=== PATIENT | female | born 1980 | race Caucasian/White ===

== ENCOUNTER 2016-10-06 23:16 | Emergency (ER) | payer SELFPAY ==
[~2016-10-06] VITALS: Ht 157.5 cm; Wt 76.2 kg
[~2016-10-06 23:16] MED LIST: ALPR2TAB2 PO; HYDR-2672 PO; HYDR50TA PO; LEVO750T31 PO; OXYC10TA32 PO; PROM25TA10 PO; QUET200T4 PO; SULF1TAB24 PO; TIZA4CAP PO; TOPI100T39 PO; Topiramate PO
--- NOTE | 2016-10-06 23:48 | PHYS DOC ---
Past Medical History Past Medical History: Asthma, Kidney Stone Additional Past Medical Histor: Back Pain, DDD Past Surgical History: Other Additional Past Surgical Histo: CYSTOSCOPY WITH STENT PLACEMENT, I&D OF ABSCESS TO BACK, left wrist/hardwar Alcohol Use: None Drug Use: None Adult General Chief Complaint Chief Complaint: ABDOMINAL PAIN HPI HPI Patient is a 36 year old female with history of kidney stones and asthma who presents today with generalized abdominal pain mostly on the laceration began 2 weeks ago and has been going on intermittently. She states she started vomiting today. Patient states she's also been feeling bloated, she states she feels her stomach is growing bigger and bigger. She is concerned she could be though her last menstrual cycle was 2 weeks ago. Patient denies any urgency frequency or dysuria. Denies any unusual vaginal discharge of concern for STDs. Review of Systems Review of Systems Constitutional: Denies fever or chills [] Eyes: Denies change in visual acuity, redness, or eye pain [] HENT: Denies nasal congestion or sore throat [] Respiratory: Denies cough or shortness of breath [] Cardiovascular: No additional information not addressed in HPI [] GI: Generalized abdominal pain nausea and vomiting, denies diarrhea : See history of present illness Musculoskeletal: Denies back pain or joint pain [] Integument: Denies rash or skin lesions [] Neurologic: Denies headache, focal weakness or sensory changes [] Endocrine: Denies polyuria or polydipsia [] Current Medications Current Medications Current Medications Medications (Trade) Dose Ordered Sig/Mariel Start Time Stop Time Status Last Admin Dose Admin Famotidine (Pepcid) 20 mg 1X ONCE 10/07/16 00:00 10/07/16 00:01 DC 10/07/16 00:10 20 MG Hydromorphone HCl (Dilaudid) 1 mg 1X ONCE 10/07/16 01:30 10/07/16 01:31 DC 10/07/16 02:31 1 MG Info (Do NOT chart on this entry -- for MONITORING) 1 each PRN DAILY PRN 10/07/16 01:30 10/07/16 04:03 DC Iohexol (Omnipaque 300 Mg/ml) 75 ml 1X ONCE 10/07/16 02:00 10/07/16 02:01 DC 10/07/16 01:44 75 ML Ketorolac Tromethamine (Toradol) 30 mg 1X ONCE 10/07/16 00:00 10/07/16 00:01 DC 10/07/16 00:10 30 MG Ondansetron HCl (Zofran) 4 mg 1X ONCE 10/07/16 00:00 10/07/16 00:01 DC 10/07/16 00:10 4 MG Sodium Chloride (Iv Sodium Chloride 0.9% 1000ml Bag) 1,000 ml @ 1,000 mls/hr 1X ONCE 10/07/16 00:00 10/07/16 00:59 DC 10/07/16 00:10 1,000 MLS/HR Allergies Allergies Allergies Coded Allergies Type Severity Reaction Last Updated Verified fentanyl Allergy Mild Nausea and Vomiting 02/15/16 Yes prednisone Adverse Reaction Intermediate 02/15/16 No morphine Adverse Reaction Mild Nausea and Vomiting 02/15/16 Yes Physical Exam Physical Exam Constitutional: Well developed, well nourished, no acute distress, non-toxic appearance. [] HENT: Normocephalic, atraumatic, bilateral external ears normal, oropharynx moist, no oral exudates, nose normal. [] Eyes: PERRLA, EOMI, conjunctiva normal, no discharge. [] Neck: Normal range of motion, no tenderness, supple, no stridor. [] Cardiovascular:Heart rate regular rhythm, no murmur [] Lungs & Thorax: Bilateral breath sounds clear to auscultation [] Abdomen: Rounded abdomen. Bowel sounds normal, soft, diffuse tenderness throughout the abdomen, negative Ramírez's sign negative psoas and obturator sign , no masses, no pulsatile masses. No guarding or rebound pain or tenderness. Skin: Warm, dry, no erythema, no rash. [] Back: No tenderness, no CVA tenderness. [] Extremities: No tenderness, no cyanosis, no clubbing, ROM intact, no edema. [] Neurologic: Alert and oriented X 3, normal motor function, normal sensory function, no focal deficits noted. [] Psychologic: Affect normal, judgement normal, mood normal. [] Current Patient Data Vital Signs Vital Signs Date Time Temp Pulse Resp B/P Pulse Ox O2 Delivery O2 Flow Rate FiO2 10/07/16 03:31 78 20 127/84 97 Room Air 10/06/16 23:29 97.8 97.8 Lab Values Laboratory Tests Test 10/06/16 23:25 10/06/16 23:35 10/07/16 00:40 Urine Collection Type Unknown Urine Color Yellow Urine Clarity Clear Urine pH 6.5 Urine Specific [place] 1.020 Urine Protein Negativemg/dL (NEG-TRACE) Urine Glucose (UA) Negativemg/dL (NEG) Urine Ketones (Stick) Negativemg/dL (NEG) Urine Blood Small (NEG) Urine Nitrite Negative (NEG) Urine Bilirubin Negative (NEG) Urine Urobilinogen Dipstick 0.2mg/dL (0.2 mg/dL) Urine Leukocyte Esterase Negative (NEG) Urine RBC Occ/HPF (0-2) Urine WBC 5-10/HPF (0-4) Urine Squamous Epithelial Cells Many/LPF Urine Bacteria Few/HPF (0-FEW) Urine Mucus Mod/LPF White Blood Count 11.6x10^3/uL (4.0-11.0) H Red Blood Count 4.90x10^6/uL (3.50-5.40) Hemoglobin 15.0g/dL (12.0-15.5) Hematocrit 45.8% (36.0-47.0) Mean Corpuscular Volume 94fL (79-100) Mean Corpuscular Hemoglobin 31pg (25-35) Mean Corpuscular Hemoglobin Concent 33g/dL (31-37) Red Cell Distribution Width 13.9% (11.5-14.5) Platelet Count 296x10^3/uL (140-400) Neutrophils (%) (Auto) 63% (31-73) Lymphocytes (%) (Auto) 27% (24-48) Monocytes (%) (Auto) 8% (0-9) Eosinophils (%) (Auto) 2% (0-3) Basophils (%) (Auto) 1% (0-3) Neutrophils # (Auto) 7.3x10^3uL (1.8-7.7) Lymphocytes # (Auto) 3.2x10^3/uL (1.0-4.8) Monocytes # (Auto) 0.9x10^3/uL (0.0-1.1) Eosinophils # (Auto) 0.2x10^3/uL (0.0-0.7) Basophils # (Auto) 0.1x10^3/uL (0.0-0.2) Sodium Level 138mmol/L (136-145) Potassium Level 3.6mmol/L (3.5-5.1) Chloride Level 102mmol/L (98-107) Carbon Dioxide Level 27mmol/L (21-32) Anion Gap 9 (6-14) Blood Urea Nitrogen 13mg/dL (7-20) Creatinine 0.8mg/dL (0.6-1.0) Estimated GFR (Cockcroft-Gault) 80.7 BUN/Creatinine Ratio 16 (6-20) Glucose Level 120mg/dL (70-99) H Calcium Level 9.6mg/dL (8.5-10.1) Total Bilirubin 0.3mg/dL (0.2-1.0) Aspartate Amino Transferase (AST) 19U/L (15-37) Alanine Aminotransferase (ALT) 21U/L (14-59) Alkaline Phosphatase 88U/L (46-116) Total Protein 7.7g/dL (6.4-8.2) Albumin 3.8g/dL (3.4-5.0) Albumin/Globulin Ratio 1.0 (1.0-1.7) Lipase 127U/L (73-393) Influenza Type A Antigen Negative (NEGATIVE) Influenza Type B Antigen Negative (NEGATIVE) Laboratory Tests 10/06/16 23:35 Laboratory Tests 10/06/16 23:35 EKG EKG [] Radiology/Procedures Radiology/Procedures [] [facility] [address] [place] [address] IMAGING REPORT Signed PATIENT: NAI SEALS ACCOUNT: [id number] : 1980 LOCATION: ER AGE: 36 SEX: F EXAM STATUS: REG ER ORD. PHYSICIAN: ELYSIA MUÑOZ APRN REASON: abdominal pain PROCEDURE: ABD PELV W/ IV CONTRAST ONLY PROCEDURE CT abdomen pelvis with contrast. HISTORY Abdominal pain, nausea, vomiting. TECHNIQUE Helical CT imaging of the abdomen and pelvis is performed after 75 cc Omnipaque 300 IV contrast. PQRS: One or more the following individualized dose reduction techniques were utilized for the study: 1. Automated exposure control. 2. Adjustment of the mA and/or kV according to patient size. 3. Use of iterative reconstruction technique. COMPARISON CT abdomen pelvis without contrast February 15, 2016. FINDINGS Mild bilateral dependent atelectasis. Cardiac size normal. The liver, gallbladder, spleen, pancreas, adrenal glands, abdominal aorta, and kidneys are normal. Parenchymal calcification of left kidney, stable. Stomach unremarkable. No dilated small bowel. No evidence of colitis. There is moderate stool in the colon. No secondary signs of appendicitis. No abdominal adenopathy or free fluid. Tubal ligation clips. 1.3 centimeter peripherally enhancing right ovary functional cyst. Uterus unremarkable. No pelvic free fluid. Urinary bladder is normal. No acute bone abnormality. Probable Schmorl's node with sclerosis at the inferior endplate of T10. IMPRESSION 1. No acute abdominal or pelvic abnormality. 2. Small peripherally enhancing right ovary functional cyst. No pelvic free fluid. Electronically signed by: Farhan Prescott MD (Oct 07, 2016 02:00:50) DICTATED and SIGNED BY: FARHAN PRESCOTT MD DATE: 10/07/16 020 CC: ELYSIA MUÑOZ MUSICAL INSTRUMENT MECHANIC; PHU GONZALES APRN ~ Course & Med Decision Making Course & Med Decision Making Pertinent Labs and Imaging studies reviewed. (See chart for details) Patient is in the ED generalized abdominal pain for 2 weeks. She is also complaining of vomiting today. She believes she is though her last menstrual cycle was 2 weeks ago. Acute abdominal series interpreted by Dr. Kasper was noted for nonspecific gas pattern in the abdomen as well as stool. CT of the abdomen and pelvic was ordered. Negative urine hCG. CBC 11.5, CMP with no acute findings. [address] Kasper. I seemed care of this patient as stated by liban or Elysia. CT of the abdomen and pelvis did not reveal any acutely concerning findings, and a isolated small left ovarian cyst was noted. A findings were also unremarkable. On reevaluation, patient is resting comfortable, is feeling better at this time. I did discuss findings with patient and significant other at bedside. Encouraged the patient to follow-up with her primary care provider for additional evaluation, she did receive a copy of her CT findings, we did discuss concerning symptoms that would prompt return to the ED. Patient was also written for prescription for Zofran and Bentyl, given instructions and precautions, patient voiced understanding and agreement with plan as stated, discharged home in stable condition with family the plan as above. Dragon Disclaimer Dragon Disclaimer This electronic medical record was generated, in whole or in part, using a voice recognition dictation system. Departure Impression: Primary Impression: Generalized abdominal pain Disposition: HOME, SELF-CARE Condition: IMPROVED Referrals: PHU GONZALES APRN (PCP) Scripts Ondansetron Hcl (Zofran)4 Mg Tablet4 Mg PO BID PRN NAUSEA/VOMITING #12 TAB Prov:PHOEBE KASPER DO 10/07/16 Dicyclomine Hcl (Bentyl)10 Mg [id number] Mg PO QID PRN PAIN #12 TAB Prov:PHOEBE KASPER DO 10/07/16 Departure Departure Impression: Primary Impression: Generalized abdominal pain Disposition: HOME, SELF-CARE Condition: IMPROVED Referrals: PHU GONZALES APRN (PCP) Scripts Ondansetron Hcl (Zofran)4 Mg Tablet4 Mg PO BID PRN NAUSEA/VOMITING #12 TAB Prov:PHOEBE KASPER DO 10/07/16 Dicyclomine Hcl (Bentyl)10 Mg [id number] Mg PO QID PRN PAIN #12 TAB Prov:PHOEBE KASPER DO 10/07/16 ELYSIA MUÑOZ APRN Oct 06, 2016 23:48 PHOEBE KASPER DO Oct 07, 2016 06:18
[2016-10-06 23:50] LABS: BASO # 0.1 x10^3/uL (0.0-0.2); BASO % 1 % (0-3); EOS % 2 % (0-3); HEMATOCRIT 45.8 % (36.0-47.0); LYMPH # 3.2 x10^3/uL (1.0-4.8); LYMPH % 27 % (24-48); MEAN CORPUSCULAR HEMOGLOBIN 31 pg (25-35); MEAN CORPUSCULAR HGB CONC 33 g/dL (31-37); MEAN CORPUSCULAR VOLUME 94 fL (79-100); MONO % 8 % (0-9); NEUT % 63 % (31-73); PLATELET COUNT 296 x10^3/uL (140-400); RED CELL DISTRIBUTION WIDTH 13.9 % (11.5-14.5); WHITE BLOOD COUNT 11.6 x10^3/uL (4.0-11.0)
[2016-10-07] MEDS ORDERED: KETOROLAC TROMETHAMINE 30 MG/ML SYRINGE. IV ONE
[2016-10-07] MEDS ORDERED: IV NORMAL SALINE 1000ML BAG 1,000 ML IV ONE
[2016-10-07] MEDS ORDERED: FAMOTIDINE 20 MG/2 ML VIAL IVP ONE
[2016-10-07] MEDS ORDERED: ONDANSETRON PF 4 MG/2 ML VIAL. IV ONE
[2016-10-07 00:03] LABS: CALCIUM 9.6 mg/dL (8.5-10.1); CREATININE 0.8 mg/dL (0.6-1.0); GFR 80.7; POTASSIUM 3.6 mmol/L (3.5-5.1)
[2016-10-07 00:08] LABS: ALBUMIN 3.8 g/dL (3.4-5.0); TOTAL BILIRUBIN 0.3 mg/dL (0.2-1.0); TOTAL PROTEIN 7.7 g/dL (6.4-8.2)
[2016-10-07 00:20] LABS: BILIRUBIN,URINE NEGATIVE (NEG); GLUCOSE,URINE NEGATIVE (NEG); NITRITE,URINE NEGATIVE (NEG); PH,URINE 6.5; PROTEIN,URINE NEGATIVE (NEG-TRACE); UROBILINOGEN,URINE 0.2 mg/dL (0.2 mg/dL)
[2016-10-07 00:21] LABS: BACTERIA,URINE FEW /HPF (0-FEW); RBC,URINE OCC /HPF (0-2); SQUAMOUS EPITHELIAL CELL,UR MANY /LPF
[2016-10-07] MEDS ORDERED: HYDROMORPHONE 2 MG/ML VIAL. IV ONE (01:30)
[2016-10-07] MEDS ORDERED: CONTRAST GIVEN MC PRN (01:30)
[2016-10-07 01:34] LABS: OBC FLU VALID
[2016-10-07] MEDS ORDERED: IOHEXOL 300 MG/ML 75 ML VIAL IV ONE (02:00)
--- NOTE | 2016-10-07 02:02 | RAD ---
PROCEDURE CT abdomen pelvis with contrast. HISTORY Abdominal pain, nausea, vomiting. TECHNIQUE Helical CT imaging of the abdomen and pelvis is performed after 75 cc Omnipaque 300 IV contrast. PQRS: One or more the following individualized dose reduction techniques were utilized for the study: 1. Automated exposure control. 2. Adjustment of the mA and/or kV according to patient size. 3. Use of iterative reconstruction technique. COMPARISON CT abdomen pelvis without contrast February 15, 2016. FINDINGS Mild bilateral dependent atelectasis. Cardiac size normal. The liver, gallbladder, spleen, pancreas, adrenal glands, abdominal aorta, and kidneys are normal. Parenchymal calcification of left kidney, stable. Stomach unremarkable. No dilated small bowel. No evidence of colitis. There is moderate stool in the colon. No secondary signs of appendicitis. No abdominal adenopathy or free fluid. Tubal ligation clips. 1.3 centimeter peripherally enhancing right ovary functional cyst. Uterus unremarkable. No pelvic free fluid. Urinary bladder is normal. No acute bone abnormality. Probable Schmorl's node with sclerosis at the inferior endplate of T10. IMPRESSION 1. No acute abdominal or pelvic abnormality. 2. Small peripherally enhancing right ovary functional cyst. No pelvic free fluid. Electronically signed by: Farhan Prescott MD (Oct 07, 2016 02:00:50)
[2016-10-07] MEDS ORDERED: ONDA4TAB7 PO (03:07)
[2016-10-07] MEDS ORDERED: DICY10CA53 PO (03:07)
[2016-10-07 03:31] VITALS: BP 127/84
--- NOTE | 2016-10-07 07:35 | RAD ---
Portable acute abdomen series, 3 views, 10/07/2016: History: Abdominal pain There is a moderate amount of gas and stool in the colon in a nonspecific pattern. No free air seen in the abdomen. There is no evidence of organomegaly. Several pelvic calcifications are probably phleboliths. The heart size is normal. The lungs are clear. There is no evidence of pleural fluid. IMPRESSION: No acute abdominal abnormality is detected.
== END 2016-10-07 03:55 | disposition home or self-care (01) ==
LOC: ER 23:16
DX: R10.84 Generalized abdominal pain (principal); J45.909 Unspecified asthma, uncomplicated; Z87.442 Personal history of urinary calculi; Z88.8 Allergy status to other drugs, medicaments and biological substances; Z88.5 Allergy status to narcotic agent
CPT/HCPCS: 36415; 74022; 74177; 80053; 81001; 81025; 83690; 85027; 87804; 96361; 96374; 96375; 99285; J1170; J1885; J2405; J7030; Q9967; S0028

== ENCOUNTER 2016-10-29 20:19 | Emergency (ER) | payer SELFPAY ==
[~2016-10-29] VITALS: Ht 157.5 cm; Wt 65.8 kg
[~2016-10-29 20:19] MED LIST changes: +DICY10CA53 PO; +ONDA4TAB7 PO
[2016-10-29 21:00] LABS: BILIRUBIN,URINE NEGATIVE (NEG); GLUCOSE,URINE NEGATIVE (NEG); NITRITE,URINE NEGATIVE (NEG); PH,URINE 6.5; PROTEIN,URINE NEGATIVE (NEG-TRACE)
[2016-10-29] MEDS ORDERED: HYDROMORPHONE 2 MG/ML VIAL. IM ONE (21:00)
[2016-10-29] MEDS ORDERED: ONDANSETRON PF 4 MG/2 ML VIAL. IV ONE ×3 (21:00→22:30)
[2016-10-29 21:09] LABS: BACTERIA,URINE 0 /HPF (0-FEW); RBC,URINE OCC /HPF (0-2); SQUAMOUS EPITHELIAL CELL,UR FEW /LPF; WBC,URINE OCC /HPF (0-4)
[2016-10-29] MEDS ORDERED: HYDROMORPHONE 2 MG/ML VIAL. IV PRN (21:30)
[2016-10-29] MEDS ORDERED: HYDROMORPHONE 2 MG/ML VIAL. IV ONE (21:30)
[2016-10-29] MEDS ORDERED: IV NORMAL SALINE 1000ML BAG 1,000 ML IV ONE (21:30)
[2016-10-29 21:45] LABS: BASO # 0.1 x10^3/uL (0.0-0.2); BASO % 1 % (0-3); EOS % 2 % (0-3); HEMATOCRIT 40.5 % (36.0-47.0); HEMOGLOBIN 13.5 g/dL (12.0-15.5); LYMPH # 5.3 x10^3/uL (1.0-4.8); LYMPH % 43 % (24-48); MEAN CORPUSCULAR HEMOGLOBIN 31 pg (25-35); MEAN CORPUSCULAR HGB CONC 33 g/dL (31-37); MEAN CORPUSCULAR VOLUME 92 fL (79-100); MONO % 8 % (0-9); NEUT % 47 % (31-73); PLATELET COUNT 274 x10^3/uL (140-400); RED BLOOD COUNT 4.41 x10^6/uL (3.50-5.40); RED CELL DISTRIBUTION WIDTH 14.1 % (11.5-14.5); WHITE BLOOD COUNT 12.4 x10^3/uL (4.0-11.0)
[2016-10-29] MEDS ORDERED: ONDA4TAB10 SL (21:59)
[2016-10-29] MEDS ORDERED: HYDR-2666 PO (21:59)
--- NOTE | 2016-10-29 22:00 | PHYS DOC ---
Past Medical History Past Medical History: Anxiety, Asthma, Depression, Kidney Stone Additional Past Medical Histor: Back Pain, DDD, INSOMNIA, PTSD, MULTIPLE PERSONALITY DISORDER Past Surgical History: Other Additional Past Surgical Histo: CYSTOSCOPY WITH STENT PLACEMENT, I&D OF ABSCESS TO BACK, L WRIST FX Alcohol Use: None Drug Use: None Adult General Chief Complaint Chief Complaint: ABDOMINAL PAIN HPI HPI 36-year-old female presenting to the emergency department today with left lower quadrant abdominal pain. The pain is sharp moderate. She has associated vaginal bleeding but denies being . She is also had some nausea vomiting. Her pain is nonradiating. She denies polyuria or dysuria. She denies foul-smelling vaginal discharge. She denies exposure to STIs or STDs. Review of systems is negative for chest pain shortness of breath fevers or chills. All other review of systems is negative unless otherwise noted in history of present illness. Review of Systems Review of Systems SEE ABOVE. Current Medications Current Medications Current Medications Medications (Trade) Dose Ordered Sig/Mariel Start Time Stop Time Status Last Admin Dose Admin Hydromorphone HCl (Dilaudid) 0.5 mg 1X ONCE 10/29/16 21:30 10/29/16 21:31 DC 10/29/16 21:33 0.5 MG Ondansetron HCl (Zofran) 4 mg 1X ONCE 10/29/16 22:30 10/29/16 22:31 DC 10/29/16 22:24 4 MG Ondansetron HCl 4 mg 4 mg 1X ONCE 10/29/16 21:30 10/29/16 21:31 DC 10/29/16 21:32 4 MG Sodium Chloride (Iv Sodium Chloride 0.9% 1000ml Bag) 1,000 ml @ 1,000 mls/hr 1X ONCE 10/29/16 21:30 10/29/16 22:29 DC 10/29/16 21:32 1,000 MLS/HR Allergies Allergies Allergies Coded Allergies Type Severity Reaction Last Updated Verified fentanyl Allergy Mild Nausea and Vomiting 02/15/16 Yes prednisone Adverse Reaction Intermediate 02/15/16 No morphine Adverse Reaction Mild Nausea and Vomiting 02/15/16 Yes Physical Exam Physical Exam Constitutional: Well developed, well nourished, no acute distress, non-toxic appearance. HENT: Normocephalic, atraumatic, bilateral external ears normal, oropharynx moist, no oral exudates, nose normal. Eyes: PERRLA, EOMI, conjunctiva normal, no discharge. Neck: Normal range of motion, no tenderness, supple, no stridor. [] Cardiovascular:Heart rate regular rhythm, no murmur Lungs & Thorax: Bilateral breath sounds clear to auscultation [] Abdomen: Soft nontender abdomen without rebound tenderness or guarding present. Negative McBurneys point. Negative Ramírez sign. No ecchymosis present. Skin: Warm, dry, no erythema, no rash. Back: No tenderness, no CVA tenderness. Extremities: No tenderness, no cyanosis, no clubbing, ROM intact, no edema. Neurologic: Alert and oriented X 3, normal motor function, normal sensory function, no focal deficits noted. [] Psychologic: Affect normal, judgement normal, mood normal. Current Patient Data Vital Signs Vital Signs Date Time Temp Pulse Resp B/P Pulse Ox O2 Delivery O2 Flow Rate FiO2 10/29/16 22:57 70 20 146/91 93 Room Air 10/29/16 20:30 97.5 97.5 Lab Values Laboratory Tests Test 10/29/16 20:26 10/29/16 20:47 10/29/16 21:25 Urine Collection Type Unknown Urine Color Yellow Urine Clarity Clear Urine pH 6.5 Urine Specific [place] 1.025 Urine Protein Negativemg/dL (NEG-TRACE) Urine Glucose (UA) Negativemg/dL (NEG) Urine Ketones (Stick) Negativemg/dL (NEG) Urine Blood Trace (NEG) Urine Nitrite Negative (NEG) Urine Bilirubin Negative (NEG) Urine Urobilinogen Dipstick 1.0mg/dL (0.2 mg/dL) Urine Leukocyte Esterase Negative (NEG) Urine RBC Occ/HPF (0-2) Urine WBC Occ/HPF (0-4) Urine Squamous Epithelial Cells Few/LPF Urine Bacteria 0/HPF (0-FEW) Urine Mucus Mod/LPF POC Urine HCG, Qualitative Hcg negative (Negative) White Blood Count 12.4x10^3/uL (4.0-11.0) H Red Blood Count 4.41x10^6/uL (3.50-5.40) Hemoglobin 13.5g/dL (12.0-15.5) Hematocrit 40.5% (36.0-47.0) Mean Corpuscular Volume 92fL (79-100) Mean Corpuscular Hemoglobin 31pg (25-35) Mean Corpuscular Hemoglobin Concent 33g/dL (31-37) Red Cell Distribution Width 14.1% (11.5-14.5) Platelet Count 274x10^3/uL (140-400) Neutrophils (%) (Auto) 47% (31-73) Lymphocytes (%) (Auto) 43% (24-48) Monocytes (%) (Auto) 8% (0-9) Eosinophils (%) (Auto) 2% (0-3) Basophils (%) (Auto) 1% (0-3) Neutrophils # (Auto) 5.8x10^3uL (1.8-7.7) Lymphocytes # (Auto) 5.3x10^3/uL (1.0-4.8) H Monocytes # (Auto) 1.0x10^3/uL (0.0-1.1) Eosinophils # (Auto) 0.2x10^3/uL (0.0-0.7) Basophils # (Auto) 0.1x10^3/uL (0.0-0.2) Sodium Level 142mmol/L (136-145) Potassium Level 3.4mmol/L (3.5-5.1) L Chloride Level 105mmol/L (98-107) Carbon Dioxide Level 25mmol/L (21-32) Anion Gap 12 (6-14) Blood Urea Nitrogen 13mg/dL (7-20) Creatinine 0.8mg/dL (0.6-1.0) Estimated GFR (Cockcroft-Gault) 80.7 BUN/Creatinine Ratio 16 (6-20) Glucose Level 99mg/dL (70-99) Calcium Level 9.2mg/dL (8.5-10.1) Total Bilirubin 0.2mg/dL (0.2-1.0) Aspartate Amino Transferase (AST) 16U/L (15-37) Alanine Aminotransferase (ALT) 26U/L (14-59) Alkaline Phosphatase 75U/L (46-116) Total Protein 6.7g/dL (6.4-8.2) Albumin 3.4g/dL (3.4-5.0) Albumin/Globulin Ratio 1.0 (1.0-1.7) Lipase 147U/L (73-393) Laboratory Tests 10/29/16 21:25 Laboratory Tests 10/29/16 21:25 EKG EKG [] Radiology/Procedures Radiology/Procedures [] Course & Med Decision Making Course & Med Decision Making Pertinent Labs and Imaging studies reviewed. (See chart for details) [] 36-year-old female presenting to the emergency department with vaginal bleeding with left lower quadrant abdominal pain. Afebrile normal heart rate. Pertinent physical exam findings show a nontender abdomen. The patient is given IV fluids along with pain medication here in the emergency department. Ultrasound obtained along with blood work. CBC shows mild leukocytosis that is nonspecific. Urinalysis negative for infection. test negative. US neg for acute pathology. Patient. The patient's abdomen is soft and nontender. She was subsequently discharged home to follow up with her primary care physician in 2-3 days For further outpatient evaluation workup and care. Dragon Disclaimer Dragon Disclaimer This electronic medical record was generated, in whole or in part, using a voice recognition dictation system. Departure Departure Impression: Primary Impression: Abdominal pain, LLQ Additional Impression: Vaginal bleeding Disposition: 01 HOME, SELF-CARE Condition: STABLE Referrals: PHU GONZALES APRN (PCP) Patient Instructions: Abdominal Pain, Women Additional Instructions: Thank you for allowing us to participate in your care today. Followup with your primary care physician in 3 days if your symptoms do not improve. If you do not have a primary care provider you can ask for a list of our primary care providers. Return to the emergency department you have any new or concerning findings. This should be evaluated by the primary care physician and any necessary consulting services for continued management within a few days after discharge. Return to emergency room if you have any new or concerning symptoms including but not limited to fever, chills, nausea, vomiting, intractable pain, any new rashes, chest pain, shortness of air, uncontrolled bleeding, difficulty breathing, and/or vision loss. Scripts Ondansetron (Zofran Odt)4 Mg Tab.rapdis1 Tab SL PRN Q8HRS PRN NAUSEA #6 TAB Prov:JANAY FAYE MD 10/29/16 Hydrocodone Bit/Acetaminophen (Hydrocodone-Apap 5-325 )1 Each Tablet1 Tab PO PRN Q6HRS PRN PAIN #15 TAB Be careful as this medication may cause you to be drowsy or tired. Do not drive on this medication. Prov:JANAY FAYE MD 10/29/16 Problem Qualifiers JANAY FAYE MD Oct 29, 2016 22:00
--- NOTE | 2016-10-29 22:03 | RAD ---
PROCEDURE Pelvic ultrasound HISTORY 36-year-old female with left lower quadrant pain for 3 hours, irregular cycles. TECHNIQUE Transverse and longitudinal sonography of the pelvis is performed utilizing transabdominal and transvaginal transducers. COMPARISON None FINDINGS Transabdominal imaging does not demonstrate adequate visualization of the uterus nor bilateral ovaries. Transvaginal imaging demonstrates an anteflexed uterus measuring 7.5 x 3.7 x 4.8 cm. Endometrial thickness demonstrated at 4 millimeter. The left ovary is visualized measuring 2.5 x 1.8 x 1.5 cm, with internal blood flow documented. The right ovary is visualized measuring 2.3 x 1.2 x 1.3 cm, with internal blood flow documented. No ovarian or adnexal mass is seen. No free fluid is seen within the provided images. IMPRESSION Normal pelvic ultrasound. Electronically signed by: Tata Weir (Oct 29, 2016 22:02:20)
[2016-10-29 22:27] LABS: CALCIUM 9.2 mg/dL (8.5-10.1); CREATININE 0.8 mg/dL (0.6-1.0); GFR 80.7; POTASSIUM 3.4 mmol/L (3.5-5.1)
[2016-10-29 22:35] LABS: ALBUMIN 3.4 g/dL (3.4-5.0); TOTAL BILIRUBIN 0.2 mg/dL (0.2-1.0); TOTAL PROTEIN 6.7 g/dL (6.4-8.2)
[2016-10-29 22:57] VITALS: BP 146/91
== END 2016-10-29 23:14 | disposition home or self-care (01) ==
LOC: ER 20:19
DX: R10.32 Left lower quadrant pain (principal); N93.9 Abnormal uterine and vaginal bleeding, unspecified; J45.909 Unspecified asthma, uncomplicated; G47.00 Insomnia, unspecified; Z88.5 Allergy status to narcotic agent; Z88.8 Allergy status to other drugs, medicaments and biological substances
CPT/HCPCS: 36415; 76830; 76856; 80053; 81001; 81025; 83690; 85027; 96361; 96374; 96375; 96376; 99285; J1170; J2405; J7030

== ENCOUNTER 2016-12-16 17:29 | Observation (INO) | payer SELFPAY ==
[~2016-12-16] VITALS: Ht 157.5 cm; Wt 80.3 kg
[~2016-12-16 17:29] MED LIST changes: +HYDR-2666 PO; +ONDA4TAB10 SL
[2016-12-16] MEDS ORDERED: MORPHINE SULFATE 4 MG/ML DISP.SYRIN. IV ONE (17:45)
[2016-12-16] MEDS ORDERED: ONDANSETRON PF 4 MG/2 ML VIAL. IV ONE ×2 (17:45→19:30)
[2016-12-16] MEDS ORDERED: PROPOFOL 20 ML IV ONE (18:57)
[2016-12-16] MEDS ORDERED: PROPOFOL 10 MG/ML (50ML) VIAL. IV PRN (19:00)
[2016-12-16] MEDS ORDERED: KETOROLAC TROMETHAMINE 30 MG/ML INJ. IV ONE (19:30)
--- NOTE | 2016-12-16 20:34 | RAD ---
Examination: Two views of the right wrist. HISTORY History of postreduction. COMPARISON None available Findings: Dorsal and lateral displaced fracture of the distal radius metadiaphysis is identified. There is minimal displaced fracture of the ulnar-styloid. Cast obscures fine bony detail. Impression. Dorsal and lateral displaced fracture of the distal radius metadiaphysis. Minimal displaced fracture of the ulnar styloid. Comparison to prior exam is recommended if available. Electronically signed by: Ayo Trammell (Dec 16, 2016 20:32:37)
--- NOTE | 2016-12-16 20:35 | ED.ADGEN ---
Past Medical History Past Medical History: Anxiety, Asthma, Depression, Kidney Stone, Other Additional Past Medical Histor: Back Pain, DDD, INSOMNIA, PTSD, MULTIPLE PERSONALITY DISORDER Past Surgical History: Tubal ligation, Other Additional Past Surgical Histo: CYSTOSCOPY WITH STENT PLACEMENT, I&D OF ABSCESS TO BACK, L WRIST FX Additional Information: 0.5 PPD Alcohol Use: None Drug Use: None Adult General Chief Complaint Chief Complaint: WRIST PAIN HPI HPI Patient is a 36 year old female who presents with right wrist deformity after falling on outstretched right hand is prior to ED arrival. Patient with obvious dinner fork for many on ED arrival. Neurovascularly intact. Patient denies other injury or pain complaint. Review of Systems Review of Systems Review symptoms as per history of present illness. All other review symptoms are negative. Current Medications Current Medications Current Medications Medications (Trade) Dose Ordered Sig/Mariel Start Time Stop Time Status Last Admin Dose Admin Ketorolac Tromethamine (Toradol) 30 mg 1X ONCE 12/16/16 19:30 12/16/16 19:33 DC 12/16/16 19:41 30 MG Morphine Sulfate 4 mg 1X ONCE 12/16/16 17:45 12/16/16 17:46 DC 12/16/16 17:57 4 MG Ondansetron HCl (Zofran) 4 mg 1X ONCE 12/16/16 19:30 12/16/16 19:33 DC 12/16/16 19:40 4 MG Propofol (Diprivan) 40 mg PRN 1X PRN 12/16/16 19:00 12/16/16 19:09 40 MG Allergies Allergies Allergies Coded Allergies Type Severity Reaction Last Updated Verified fentanyl Allergy Mild Nausea and Vomiting 02/15/16 Yes prednisone Adverse Reaction Intermediate 02/15/16 No Physical Exam Physical Exam Constitutional: Well developed, well nourished, moderate discomfort secondary to pain. HENT: Normocephalic, atraumatic, bilateral external ears normal, oropharynx moist, no oral exudates, nose normal. Eyes: PERRL. Extremities: Right upper extremity, right wrist dinner fork deformity with tenderness. Neurovascularly intact Neurologic: Right wrist, neurovascularly intact. Psychologic: Affect normal, judgement normal, mood normal. Current Patient Data Vital Signs Vital Signs Date Time Temp Pulse Resp B/P Pulse Ox O2 Delivery O2 Flow Rate FiO2 12/16/16 19:20 94 18 137/79 99 Room Air 4/27/17 19:10 2 12/16/16 17:34 98.2 98.2 EKG EKG [] Radiology/Procedures Radiology/Procedures [Prereduction right wrist: Dorsally displaced distal ulnar radial fractures Postreduction right wrist: Partially reduced distal radial and ulnar fractures] Impressions: Procedural sedation with limited reduction of closed right wrist fracture, neurovascularly intact on reevaluation. Course & Med Decision Making Course & Med Decision Making Pertinent Labs and Imaging studies reviewed. (See chart for details) [Patient reassessed post reduction and is neurovascularly intact. Case reviewed with orthopedic services. Recommendations are for hospitalist admission with anticipated surgical reduction in the a.m. Dr. suggs agrees to admit.] Dragon Disclaimer Genion Disclaimer This electronic medical record was generated, in whole or in part, using a voice recognition dictation system. MAG VAUGHN DO Dec 16, 2016 20:35
[2016-12-16 21:15] VITALS: BP 129/84
[2016-12-16] MEDS ORDERED: HYDROCODONE/APAP 10/325 TABLET. PO PRN (21:45)
[2016-12-16] MEDS ORDERED: ALPRAZolam 1 MG TABLET PO PRN (21:45)
[2016-12-16] MEDS ORDERED: DICYCLOMINE HCL 10 MG CAPSULE PO PRN (21:45)
[2016-12-16] MEDS ORDERED: MORPHINE SULFATE 10 MG/ML VIAL. IV PRN (21:45)
[2016-12-16] MEDS ORDERED: PROMETHAZINE 12.5 MG TABLET. PO PRN (21:45)
[2016-12-16] MEDS ORDERED: ONDANSETRON ODT 4 MG TAB.RAPDIS. PO PRN (21:45)
--- NOTE | 2016-12-16 22:10 | PDOC1 ---
History and Physical Date of Admission Date of Admission DATE: 12/16/16 TIME: 22:03 Identification/Chief Complaint Chief Complaint right wrist pain Problems: Source Source: Chart review, Patient History of Present Illness History of Present Illness Ms. Wayne, is a 36 year old female admit with wrist fracture new right wrist deformity after falling on outstretched right hand. She reports "because I lost too much weight and now my ass is small so I fell on my hand and broke this" other history is not much more enlightening complaining of severe right wrist and hand pain, lortab was on her home med list, but she reports that was a long time ago from kidney stones, now opiate naive, and she reports "a high pain tolerance" Past Medical History Cardiovascular: Hyperlipidemia Pulmonary: Asthma GI: Irritable bowel disease Psych: Bipolar Musculoskeletal: Osteoarthritis Renal/: Other Past Surgical History Past Surgical History: Tubal Ligation, Other (left ulnar fracture ) Family History Family History: Hypertension Social History Smoke: No<1 pack per day ALCOHOL: none Drugs: None Current Problem List Problem List Problems Medical Problems: (1) Closed fracture of right wrist Status: Acute Problems: Current Medications Current Medications Current Medications Ondansetron HCl (Zofran) 4 mg 1X ONCE IV Last administered on 12/16/16 17:55 ; Start 12/16/16 at 17:45; Stop 12/16/16 at 17:46; Status DC Morphine Sulfate 4 mg 4 mg 1X ONCE IV Last administered on 12/16/16 17:57; Start 12/16/16 at 17:45; Stop 12/16/16 at 17:46; Status DC Propofol (Diprivan) 20 ml @ As Directed STK-MED ONCE IV ; Start 12/16/16 at 18: 57; Stop 12/16/16 at 18:58; Status DC Propofol (Diprivan) 40 mg PRN 1X PRN IV CONSCIOUS SEDATION Last administered on 12/16/16 19:09; Start 12/16/16 at 19:00 Ondansetron HCl (Zofran) 4 mg 1X ONCE IV Last administered on 12/16/16 19:40 ; Start 12/16/16 at 19:30; Stop 12/16/16 at 19:33; Status DC Ketorolac Tromethamine (Toradol) 30 mg 1X ONCE IV Last administered on 4/27/ 17at 19:41; Start 12/16/16 at 19:30; Stop 12/16/16 at 19:33; Status DC Dicyclomine HCl (Bentyl) 10 mg PRN QID PRN PO STOMACH PAIN; Start 12/16/16 at 21:45 Acetaminophen/ Hydrocodone Bitart (Lortab 10/325) 1 tab PRN Q6HRS PRN PO SEVERE PAIN; Start 12/16/16 at 21:45 Ondansetron HCl (Zofran Odt) 4 mg PRN Q8HRS PRN PO NAUSEA; Start 12/16/16 at 21 :45 Oxycodone HCl (Oxycontin) 10 mg BID PO ; Start 12/17/16 at 09:00 Trimethoprim/ Sulfamethoxazole (Bactrim Ds) 2 tab BID PO ; Start 12/17/16 at 09: 00 Topiramate (Topamax) 100 mg BID PO ; Start 12/17/16 at 09:00 Hydroxyzine Pamoate (Vistaril) 50 mg BID PO ; Start 12/17/16 at 09:00 Promethazine HCl (Phenergan) 25 mg PRN Q6HRS PRN PO NAUSEA/VOMITING; Start at 21:45 Alprazolam (Xanax) 2 mg PRN Q8HRS PRN PO ANXIETY / AGITATION; Start 12/16/16 at 21:45 Morphine Sulfate 10 mg PRN Q6HRS PRN IV SEVERE PAIN; Start 12/16/16 at 21:45; Stop 12/16/16 at 21:57; Status DC Morphine Sulfate 4 mg PRN Q24HRS PRN IV SEVERE PAIN; Start 12/17/16 at 21:45; Status UNV Active Scripts Active Zofran Odt (Ondansetron) 4 Mg Tab.rapdis 1 Tab SL PRN Q8HRS PRN Hydrocodone-Apap 5-325 (Hydrocodone Bit/Acetaminophen) 1 Each Tablet 1 Tab PO PRN Q6HRS PRN Be careful as this medication may cause you to be drowsy or tired. Do not drive on this medication. Zofran (Ondansetron Hcl) 4 Mg Tablet 4 Mg PO BID PRN Bentyl (Dicyclomine Hcl) 10 Mg Capsule 10 Mg PO QID PRN Bactrim Ds Tablet (Sulfamethoxazole/Trimethoprim) 1 Each Tablet 2 Tab PO BID 10 Days Levaquin (Levofloxacin) 750 Mg Tablet 750 Mg PO DAILY Reported Oxycontin (Oxycodone HCl) 10 Mg Tab.er.12h Unknown Dose PO BID Promethazine Hcl 25 Mg Tablet 25 Mg PO PRN PRN Hydrocodone-Apap 10-325 (Hydrocodone Bit/Acetaminophen) 1 Each Tablet 1 Tab PO PRN Q6HRS PRN Xanax (Alprazolam) 2 Mg Tablet 1 Tab PO BID Topamax (Topiramate) 100 Mg Tablet 100 Mg PO BID Hydroxyzine Hcl 50 Mg Tablet 50 Mg PO BID Allergies Allergies: Coded Allergies: fentanyl (Verified Allergy, Mild, Nausea and Vomiting, 02/15/16) prednisone (Unverified Adverse Reaction, Intermediate, 02/15/16) PT REPORTS THAT PILL FORM OF MEDICATION CAUSES HER TO BECOME VIOLENT. PT REPORTS THAT SHE HAS NO REACTION WITH LIQUID AND IV FORM OF MEDICATION ROS General: No: Appetite, Chills, Fatigue, Malaise, Night Sweats, Other PSYCHOLOGICAL ROS: YES: Anxiety, Hostility, Irritablity, No: Behavioral Disorder, Concentration difficultie, Decreased libido, Depression, Disorientation, Hallucinations, Memory difficulties, Mood Swings, Obsessive thoughts, Other, Physical abuse, Sexual abuse, Sleep disturbances, Suicidal ideation Eyes: No Blurry vision, No Decreased vision, No Double vision, No Dry eyes, No Excessive tearing, No Eye Pain, No Itchy Eyes, No Loss of vision, No Other, No Photophobia, No Scotomata, No Uses contacts, No Uses glasses Respiratory: No: Cough, Hemoptysis, Orthopnea, Other, Pleuritic Pain, SOB with excertion, Shortness of breath, Sputum Changes, Stridor, Tachypnea, Wheezing Cardiovascular: No Chest Pain, No Edema, No Lt Headedness, No Orthopnea, No Other, No Palpitations, No Paroxysmal Noc. Dyspnea Gastrointestinal: Yes Nausea, No Abdominal Pain, No Constipation, No Diarrhea, No Hematochezia, No Melena, No Other, No Vomiting Genitourinary: No , No , No , No , No , No , No , No Discharge, No Dysuria, No Flank Pain, No Frequency, No Hematuria, No Incontinence, No Other, No Pain, No Retention, No Urgency Musculoskeletal: Yes Joint Pain, Yes Joint Stiffness Neurological: No Behavorial Changes, No Bowel/Bladder ControlChng, No Confusion , No Dizziness, No Gait Disturbance, No Headaches, No Impaired Coord/balance, No Memory Loss, No Numbness/Tingling, No Other, No Seizures, No Speech Problems , No Tremors, No Visual Changes, No Weakness Skin: Yes Dry Skin Physical Exam General: Alert, Cooperative, moderate distress HEENT: Atraumatic, EOMI, Mucous membr. moist/pink Lungs: Clear to auscultation Heart: S1S2 Abdomen: Normal bowel sounds, Soft Rectal Exam: not examined Extremities: No clubbing, No edema, Normal pulses Skin: No significant lesion Neuro: Normal speech, Sensation intact Psych/Mental Status: Other (animated, agitated) Vitals Vitals Vital Signs Date Time Temp Pulse Resp B/P Pulse Ox O2 Delivery O2 Flow Rate FiO2 12/16/16 20:30 80 18 135/83 98 Room Air 12/16/16 19:10 2 12/16/16 17:34 98.2 98.2 VTE Prophylaxis Ordered VTE Prophylaxis Devices: Yes VTE Pharmacological Prophylaxi: Contraindicated Assessment/Plan Assessment/Plan wrist fracture, right, displaced, now reduced anxiety and agitation, takes 2mg Xanax BID at home, and propranolol, add benadryl 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
[2016-12-16] MEDS ORDERED: OXYCODONE/APAP 5/325 TABLET. PO PRN (22:15)
[2016-12-16] MEDS ORDERED: diphenhydrAMINE HCL 25 MG CAPSULE PO PRN (22:15)
[2016-12-16] MEDS ORDERED: IPRATRPIUM/ALBUTEROL 0.5/2.5MG 3 ML NEBU. NEB ONE (22:30)
--- NOTE | 2016-12-16 23:08 | ACF ---
Admission Forms Criteria MUSCULOSKELETAL DISEASE GRG Clinical Indications for Admission to Inpatient Care (Place 'X' for any and all applicable criteria): Hospital admission is needed for appropriate care of the patient because of 1 or more of the following: [X ]I. Fracture, dislocation, or other musculoskeletal injury requiring inpatient care(medical) as indicated by 1 or more of the following(4)(5)(6)(7) [ ]a) Vertebral fracture requiring observation for instability or neurologic compromise (8) [ ]b) Compartment syndrome (proven or cannot be ruled out during observation level of care) (9) [ ]c) Limb-threatening injury [ ]d) Major injury requiring inpatient stabilization such as traction initiation or external fixation before internal fixation or closure of complex or open fracture [X ]e) Major injury requiring inpatient treatment after emergency or observation level care (as appropriate) [ ]f) Severe pain requiring acute inpatient management [ ]g) Injury with suspicion of abuse or neglect (eg., child, dependent elderly) [ ]II. Newly diagnosed or suspected bone, joint, or orthopedic device infection (e.g., osteomyelitis, septic arthritis) needing 1 or more of the following(1)(2)(3) [ ]a) IV antibiotics that cannot be initiated in other than inpatient setting (e.g., patient too unstable or home infusion not available) [ ]b) Device removal or replacement [ ]c) Bone or soft tissue debridement [ ]d) Joint drainage (drain placement or repetitive aspirations) [ ]III. Severe rheumatologic disease (e.g., systemic lupus erythematosus, rheumatoid arthritis) with complications or comorbidities (Also use Optimal Recovery Care Criteria or General Recovery Criteria as appropriate on the basis of predominant condition), including 1 or more of the following( 10)(11)(12)(13) [ ]a) Severe infection (e.g., DRAWBENCH OPERATOR infection, sepsis) (14) [ ]b) Respiratory complications, including 1 or more of the following : [ ]i) Pleural effusion with respiratory compromise [ ]ii) Pulmonary hypertension with congestive failure [ ]iii) Respiratory failure [ ]iv) Pulmonary hemorrhage (15) [ ]c) Hematologic disease, including 1 or more of the following: [ ]i) Coagulopathy with bleeding [ ]ii) Thrombosis with hypercoagulable state [ ]iii) Thrombotic thrombocytopenic purpura [ ]d) Cerebritis with seizures, psychosis, or other severe abnormalities [ ]e) Vertebral destruction with monitoring needed for cervical myelopathy& possible respiratory compromise [ ]f) Exacerbation that requires inpatient treatment (e.g., intravenous immunosuppression) (16) [ ]g) Acute renal failure [ ]h) Cerebritis with seizures, psychosis, Altered mental status, or other neurologic abnormalities [ ]i) Pericardial effusion with tamponade [ ]j) Vertebral destruction, with monitoring needed for cervical myelopathy and possible respiratory compromise [ ]IV. Severe vasculitis with complications or comorbidities (Also use Optimal Recovery Care Criteria General Recovery Criteria as appropriate on the basis of predominant condition), including 1 or more of the following(11)(12)(17)(18)(19)(20) [ ]a) Exacerbation that requires inpatient treatment (e.g., intravenous immunosuppression) (19)(21) [ ]b) Pulmonary hemorrhage (15) [ ]c) DRAWBENCH OPERATOR vasculitis with seizures, psychosis, Altered mental status that is severe or persistent, or other severe abnormalities (22) [ ]d) Cerebral infarction [ ]e) Gastrointestinal ischemia [ ]f) Gangrene or threatened amputation [ ]g) Renal failure (16) [ ]h) Other significant complications of vasculitis ( eg., tissue or organ ischemia, organ dysfunction ) [ ]V. Severe myopathy as indicated by 1 or more of the following (28)(29) [ ]a) New onset of airway compromise or inability to swallow [ ]b) Respiratory deterioration with observation needed for impending respiratory failure [ ]c) Exacerbation that requires inpatient treatment (e.g., intravenous immunosuppression) [ ]. Severe crystal gout (arthropathy) indicated by 1 or more of the following (23)(24) [ ]a) Severe pain requiring acute inpatient management [ ]b) Exacerbation that requires inpatient treatment (e.g., intravenous treatment) [ ]VII.Rhabdomyolysis and 1 or more of the following (25)(26)(27) [ ]a) Acute renal failure [ ]b) Need for intravenous hydration after emergency or observation level care (as appropriate) [ ]c) Inability to maintain oral hydration [ ]d) Change in mental status [ ]e) Electrolyte abnormality that remains after emergency or observation level care (as appropriate) [ ]VIII Post amputation complication, as indicated by ANY ONE of the following [ ]a) Infection [ ]b) Dehiscence [ ]c) Myodesis failure [ ]IX. Severe pain requiring acute inpatient management due to musculoskeletal condition [ ]X. Musculoskeletal Disease and ALL of the following: [ ]a) Symptom or finding for which emergency and observation care have failed or are not considered appropriate (Use General Criteria: Observation Care as appropriate) [ ]b) Presence of ANY ONE of the following [ ]i) A General Admission Criteria [ ]ii) A Pediatric General Admission Criteria The original [facility] content created by [facility] has been revised. The portions of the content which have been revised are identified through the use of italic text or in bold, and [facility] has neither reviewed nor approved the modified material. All other unmodified content is copyright [facility]. Please see references footnoted in the original [facility] edition 2016 Admission Criteria Met?: Yes APARNA TORRES Dec 16, 2016 23:08
[2016-12-17] MEDS ORDERED: MORPHINE SULFATE 4 MG/ML DISP.SYRIN. IV PRN (01:30)
--- NOTE | 2016-12-17 07:49 | RAD ---
Right elbow radiographs History: Trauma, pain. Comparison: None. Findings: Nonstandard AP, lateral, and oblique views of the right elbow. Fiberglass cast has been applied, limiting evaluation of fine detail. No dislocation is identified. No convincing fracture is seen. Evaluation for joint effusion is limited. Impression: Limited secondary to nonstandard views and presence of cast. No definite acute fracture identified. If persistent concern for acute traumatic injury, recommend conventional 3 view radiographs of the right elbow.
[2016-12-17] MEDS ORDERED: IPRATRPIUM/ALBUTEROL 0.5/2.5MG 3 ML NEBU. NEB SCH (08:00)
--- NOTE | 2016-12-17 08:03 | RAD ---
Right wrist radiographs History: Fall, deformity. Comparison: None. Findings: PA and lateral views of the right wrist. Evaluation for acute traumatic injury is limited by lack third view. Acute, comminuted, displaced fracture seen involving the distal radial epiphysis and metaphysis. Fracture lines involve both the radiocarpal articular surface as well as the distal radioulnar joint. There is approximately one shaft width of posterior displacement of the major distal fragment relative to the proximal. There is also mild apex anterior angulation. There may be ulnar styloid fracture as well. Impression: Acute, comminuted, displaced distal radial fracture.
[2016-12-17] MEDS ORDERED: SMZ/TMP 800/160MG TABLET. PO SCH (09:00)
[2016-12-17] MEDS ORDERED: TOPIRAMATE 100 MG TABLET. PO SCH (09:00)
[2016-12-17] MEDS ORDERED: OXYCODONE ER 10 MG TAB.ER.12H. PO SCH (09:00)
[2016-12-17] MEDS ORDERED: hydrOXYzine PAMOATE 25 MG CAPSULE PO SCH (09:00)
[2016-12-17] MEDS ORDERED: PROM25TA10 PO (11:02)
[2016-12-17] MEDS ORDERED: OXYC-323 PO ×2 (11:02→11:47)
[2016-12-17] MEDS ORDERED: MORPHINE SULFATE 10 MG/ML VIAL. IV PRN (21:45)
== END 2016-12-17 03:00 | disposition left against medical advice (07) ==
LOC: ER 17:29 → 4 NORTH 20:24
PROVIDERS: ADMIT Internal Medicine; ATTEND Internal Medicine
DX: S62.101A Fracture of unspecified carpal bone, right wrist, initial encounter for closed fracture (principal); J45.909 Unspecified asthma, uncomplicated; E78.5 Hyperlipidemia, unspecified; F31.81 Bipolar II disorder; X58.XXXA Exposure to other specified factors, initial encounter; Y93.89 Activity, other specified; Y92.89 Other specified places as the place of occurrence of the external cause; Y99.8 Other external cause status; Z87.442 Personal history of urinary calculi
CPT/HCPCS: 73080; 73100; 94250; 94640; 96374; 96375; 96376; 99285; G0378; J1885; J2270; J2405; J2704; J7620; G0379

== ENCOUNTER 2016-12-17 07:26 | Emergency (ER) | payer SELFPAY ==
[~2016-12-17] VITALS: Ht 157.5 cm; Wt 80.3 kg
--- NOTE | 2016-12-17 07:49 | PHYS DOC ---
Past Medical History Past Medical History: Anxiety, Asthma, Depression, Kidney Stone, Other Additional Past Medical Histor: Back Pain, DDD, INSOMNIA, PTSD, MULTIPLE PERSONALITY DISORDER Past Surgical History: Tubal ligation, Other Additional Past Surgical Histo: CYSTOSCOPY WITH STENT PLACEMENT, I&D OF ABSCESS TO BACK, L WRIST FX Alcohol Use: None Drug Use: None Adult General Chief Complaint Chief Complaint: UPPER EXTREMITY INJURY HPI HPI Patient is a 36 year old female with no significant medical history who presents today stating she is supposed to have surgery this morning at 10 AM for wrist fracture. Patient states she was admitted last night but had to sign out AGAINST MEDICAL ADVICE because of family issues. She states she was informed she should come back to the ED and they will give her a bed. Review of Systems Review of Systems Constitutional: Denies fever or chills [] Eyes: Denies change in visual acuity, redness, or eye pain [] Musculoskeletal: Right wrist fracture Integument: Denies rash or skin lesions [] Neurologic: Denies headache, focal weakness or sensory changes [] Endocrine: Denies polyuria or polydipsia [] Current Medications Current Medications Current Medications Medications (Trade) Dose Ordered Sig/Mariel Start Time Stop Time Status Last Admin Dose Admin Morphine Sulfate 5 mg 1X ONCE 12/17/16 08:00 12/17/16 08:01 DC Allergies Allergies Allergies Coded Allergies Type Severity Reaction Last Updated Verified fentanyl Allergy Mild Nausea and Vomiting 02/15/16 Yes prednisone Adverse Reaction Intermediate 02/15/16 No Physical Exam Physical Exam Constitutional: Well developed, well nourished, no acute distress, non-toxic appearance. [] HENT: Normocephalic, atraumatic, bilateral external ears normal, oropharynx moist, no oral exudates, nose normal. [] Eyes: PERRLA, EOMI, conjunctiva normal, no discharge. [] Skin: Warm, dry, no erythema, no rash. [] Back: No tenderness, no CVA tenderness. [] Extremities: Right forearm is splinted. +2 right radial pulse. Cap refill less than 2 seconds the right upper extremity. Sensation intact to the right upper extremity. Neurologic: Alert and oriented X 3, normal motor function, normal sensory function, no focal deficits noted. [] Psychologic: Affect normal, judgement normal, mood normal. [] Current Patient Data Vital Signs Vital Signs Date Time Temp Pulse Resp B/P Pulse Ox O2 Delivery O2 Flow Rate FiO2 12/17/16 08:00 98.1 93 20 135/94 96 Room Air 98.1 EKG EKG [] Radiology/Procedures Radiology/Procedures [] Course & Med Decision Making Course & Med Decision Making Pertinent Labs and Imaging studies reviewed. (See chart for details) Patient is in the ED today after signing out AMA yesterday as an inpatient. She was admitted for dorsolateral displaced fractures of the distal radial metaphysis. Minimal displaced fracture of the ulnar styloid. She is supposed to have surgery today at 10 AM. We called surgery and confirmed she was supposed to have the procedure at [address] Hurd Her last PO intake was [address] Callahan talked to Dr. Hurd and patient will be transferred to surgery. Dragon Disclaimer Dragon Disclaimer This electronic medical record was generated, in whole or in part, using a voice recognition dictation system. Departure Departure Impression: Primary Impression: Radius fracture Additional Impression: Fracture of ulnar styloid Disposition: 05 TRANSFER OTHER Admitting Physician: Other Referrals: PHU GONZALES APRN (PCP) Patient Instructions: Wrist Fracture Additional Instructions: You are going to out patient surgery for your procedure with Dr. Hurd Problem Qualifiers Primary Impression: Radius fracture Encounter type: initial encounter Radius location: distal Fracture type: closed Fracture morphology: other fracture Laterality: right Qualified Code : S52.591A - Other fractures of lower end of right radius, initial encounter for closed fracture Additional Impression: Fracture of ulnar styloid Encounter type: initial encounter Fracture type: closed Fracture alignment : nondisplaced Laterality: right Qualified Code: S52.614A - Nondisplaced fracture of right ulna styloid process, initial encounter for closed fracture ELYSIA MUÑOZ APRN Dec 17, 2016 07:49
[2016-12-17 08:00] VITALS: BP 135/94
[2016-12-17] MEDS ORDERED: MORPHINE SULFATE 10 MG/ML VIAL. IV ONE (08:00)
[2016-12-17] MEDS ORDERED: OXYC-323 PO ×2 (11:02→11:47)
[2016-12-17] MEDS ORDERED: PROM25TA10 PO (11:02)
== END 2016-12-17 08:29 | disposition short-term general hospital (02) ==
LOC: ER 07:26
DX: S52.591A Other fractures of lower end of right radius, initial encounter for closed fracture (principal); S52.614A Nondisplaced fracture of right ulna styloid process, initial encounter for closed fracture; F32.9 Major depressive disorder, single episode, unspecified; F41.9 Anxiety disorder, unspecified; J45.909 Unspecified asthma, uncomplicated; F43.10 Post-traumatic stress disorder, unspecified; G47.00 Insomnia, unspecified; Z87.442 Personal history of urinary calculi; Z98.51 Tubal ligation status; X58.XXXA Exposure to other specified factors, initial encounter; Y93.89 Activity, other specified; Y92.89 Other specified places as the place of occurrence of the external cause; Y99.8 Other external cause status
CPT/HCPCS: 99285

== ENCOUNTER 2016-12-17 08:35 | Day surgery (SDC) | payer SELFPAY ==
[2016-12-17] MEDS ORDERED: IV RINGERS,LACTATED 1000ML 1,000 ML IV SCH ×2 (09:02→10:00)
[2016-12-17] MEDS ORDERED: HYDROmorphone 2 MG/ML VIAL IV PRN (09:15)
[2016-12-17] MEDS ORDERED: LIDOCAINE 1% 1 ML SYRINGE. ID PRN (09:15)
[2016-12-17] MEDS ORDERED: MORPHINE SULFATE 2 MG/ML DISP.SYRIN. IV PRN (09:15)
[2016-12-17] MEDS ORDERED: PROCHLORPERAZINE 10 MG/2 ML VIAL. IV PRN (09:15)
[2016-12-17] MEDS ORDERED: BUPIVACAINE-EPI 0.25%-1:200000 MPF 30 ML VIAL. ONE (09:28)
[2016-12-17] MEDS ORDERED: DEXAMETHASONE SOD PHOS 20 MG/5 ML VIAL. ONE (09:30)
[2016-12-17] MEDS ORDERED: MIDAZOLAM HCL/PF 2 MG/2 ML VIAL. ONE (09:30)
[2016-12-17] MEDS ORDERED: ONDANSETRON PF 4 MG/2 ML VIAL. ONE (09:30)
[2016-12-17] MEDS ORDERED: PROPOFOL 20 ML IV ONE (09:30)
[2016-12-17] MEDS ORDERED: LIDOCAINE 2% 100 MG/5 ML SYRINGE. ONE (09:30)
[2016-12-17] MEDS ORDERED: fentaNYL PF VIAL 100 MCG/2 ML VIAL ONE (09:33)
[2016-12-17] MEDS ORDERED: SCOPOLAMINE 1.5MG PATCH. TD ONE ×2 (09:45→10:00)
[2016-12-17 09:46] LABS: NEG OBC UR NEG
--- NOTE | 2016-12-17 09:46 | PDOC1 ---
History and Physical Date of Admission Date of Admission DATE: 12/17/16 TIME: 09:40 Identification/Chief Complaint Chief Complaint Right wrist fracture Problems: History of Present Illness History of Present Illness This 36-year-old woman fell last evening housecleaning and injured her right wrist. She had a displaced fracture of the distal radius and was seen in the emergency room where a reduction and splint was performed. She was initially admitted to the hospital for surgery today but left AMA last night. She did return this morning for surgery. She is in a splint and complaints of wrist pain. She has a prior left wrist fracture that was treated surgically with plate and screw fixation. Past Medical History Cardiovascular: Hyperlipidemia Pulmonary: Asthma GI: Irritable bowel disease Psych: Anxiety, Bipolar, Depression, Other (multiple personality disorder) Musculoskeletal: low back pain, Osteoarthritis Renal/: Other Past Surgical History Past Surgical History: Tubal Ligation, Other Family History Family History: Hypertension Social History ALCOHOL: none Drugs: None Current Medications Current Medications Current Medications Morphine Sulfate 1 mg 1 mg PRN Q10MIN PRN IV SEVERE PAIN; Start 12/17/16 at 09: 15; Stop 12/18/16 at 09:14 Lactated Ringer's (Iv Lactated Ringers) 1,000 ml @ 0 mls/hr Q0M IV ; Start at 09:02; Stop 12/17/16 at 21:01 Lidocaine HCl 2 ml PRN 1X PRN ID PRIOR TO IV START; Start 12/17/16 at 09:15; Stop 12/18/16 at 09:14 Hydromorphone HCl (Dilaudid) 0.5 mg PRN Q10MIN PRN IV SEV PAIN, Second choice; Start 12/17/16 at 09:15; Stop 12/18/16 at 09:14 Prochlorperazine Edisylate (Compazine) 5 mg PACU PRN PRN IV NAUSEA, MRX1; Start 12/17/16 at 09:15; Stop 12/18/16 at 09:14 Bupivacaine HCl/ Epinephrine Bitart (Sensorcaine-Epi 0.25%-1:[id number] Mpf) 30 ml STK-MED ONCE .ROUTE ; Start 12/17/16 at 09:28; Stop 12/17/16 at 09:29; Status DC Dexamethasone Sodium Phosphate (Decadron) 20 mg STK-MED ONCE .ROUTE ; Start at 09:30; Stop 12/17/16 at 09:31; Status DC Ondansetron HCl 4 mg 4 mg STK-MED ONCE .ROUTE ; Start 12/17/16 at 09:30; Stop at 09:31; Status DC Propofol (Diprivan) 20 ml @ As Directed STK-MED ONCE IV ; Start 12/17/16 at 09: 30; Stop 12/17/16 at 09:31; Status DC Lidocaine HCl (Lidocaine HCl 2% Abboject) 100 mg STK-MED ONCE .ROUTE ; Start at 09:30; Stop 12/17/16 at 09:31; Status DC Midazolam HCl 2 mg 2 mg STK-MED ONCE .ROUTE ; Start 12/17/16 at 09:30; Stop at 09:31; Status DC Lactated Ringer's (Iv Lactated Ringers) 1,000 ml @ 100 mls/hr Q10H IV Last administered on 12/17/16t 09:34; Start 12/17/16 at 10:00 Scopolamine 1 patch 1 patch 1X ONCE TD ; Start 12/17/16 at 10:00; Stop at 10:01 Cefazolin Sodium/ Dextrose (Ancef 2gm Premix) 50 ml @ 100 mls/hr 1X ONCE IV ; Start 12/17/16 at 09:45; Stop 12/17/16 at 10:14 Scopolamine (Transderm-Scop) 1 patch 1X ONCE TD ; Start 12/17/16 at 09:45; Stop 12/17/16 at 09:46; Status UNV Fentanyl Citrate (Fentanyl 2ml Vial) 100 mcg STK-MED ONCE .ROUTE ; Start at 09:33; Stop 12/17/16 at 09:34; Status DC Active Scripts Active Zofran Odt (Ondansetron) 4 Mg Tab.rapdis 1 Tab SL PRN Q8HRS PRN Hydrocodone-Apap 5-325 (Hydrocodone Bit/Acetaminophen) 1 Each Tablet 1 Tab PO PRN Q6HRS PRN Be careful as this medication may cause you to be drowsy or tired. Do not drive on this medication. Zofran (Ondansetron Hcl) 4 Mg Tablet 4 Mg PO BID PRN Bentyl (Dicyclomine Hcl) 10 Mg Capsule 10 Mg PO QID PRN Bactrim Ds Tablet (Sulfamethoxazole/Trimethoprim) 1 Each Tablet 2 Tab PO BID 10 Days Levaquin (Levofloxacin) 750 Mg Tablet 750 Mg PO DAILY Reported Oxycontin (Oxycodone HCl) 10 Mg Tab.er.12h Unknown Dose PO BID Promethazine Hcl 25 Mg Tablet 25 Mg PO PRN PRN Hydrocodone-Apap 10-325 (Hydrocodone Bit/Acetaminophen) 1 Each Tablet 1 Tab PO PRN Q6HRS PRN Xanax (Alprazolam) 2 Mg Tablet 1 Tab PO BID Topamax (Topiramate) 100 Mg Tablet 100 Mg PO BID Hydroxyzine Hcl 50 Mg Tablet 50 Mg PO BID Allergies Allergies: Coded Allergies: fentanyl (Verified Allergy, Mild, Nausea and Vomiting, 12/17/16) prednisone (Unverified Adverse Reaction, Intermediate, 12/17/16) PT REPORTS THAT PILL FORM OF MEDICATION CAUSES HER TO BECOME VIOLENT. PT REPORTS THAT SHE HAS NO REACTION WITH LIQUID AND IV FORM OF MEDICATION ROS Review of System She has recurrent episodes of lower extremity weakness related to back problems , and says her left leg weakness is what caused her to fall General: No: Chills, Night Sweats PSYCHOLOGICAL ROS: YES: Anxiety, Depression Respiratory: No: Shortness of breath Cardiovascular: No Chest Pain Gastrointestinal: No Vomiting Musculoskeletal: Yes Joint Pain, Yes Muscular Weakness Physical Exam General: Cooperative, mild distress (mildly anxious and hyper talkative but cooperative and in mild pain only) HEENT: Atraumatic, PERRLA Lungs: Normal air movement Heart: RRR Abdomen: Soft Extremities: Other (the right wrist is in a splint. The finger seems slightly swollen. She is holding the fingers in a splinted position but was able to demonstrate a flicker of motion for the radial ulnar and median nerve. Light touch sensation seems grossly intact with slight diffuse decreased light touch sensation.) Skin: No breakdown, Other (the skin was reported as intact) Neuro: Normal speech, Sensation intact Psych/Mental Status: Other (mildly anxious but asked and answered questions appropriately. Easily distractible.) Vitals Vitals Vital Signs Date Time Temp Pulse Resp B/P Pulse Ox O2 Delivery O2 Flow Rate FiO2 12/17/16 09:28 97.5 86 18 140/86 96 Room Air 97.5 Images Images Images reviewed independently, and reports reviewed from pre-and postreduction wrist and right elbow from last night. Intra-articular distal radius fracture, displaced, with ulnar styloid fracture. Postreduction films show an adequate reduction. This would be an unstable fracture based on the fracture pattern and initial displacement. The elbow x-rays were taken in the splint but show no evidence of a fracture. VTE Prophylaxis Ordered VTE Prophylaxis Devices: No VTE Pharmacological Prophylaxi: No Assessment/Plan Assessment/Plan She has an unstable displaced distal radius fracture. I recommended surgical reduction and fixation with plate and screw fixation. She is familiar with that from her previous left wrist surgery. We discussed the potential risks of infection, stiffness, neurovascular injury, possible need for plate removal, development of arthritis, or other potential surgical or anesthetic complications. All of her questions about surgery were answered and she desires to proceed. The surgical site was marked by me. KIMBERLY MCKINNEY MD Dec 17, 2016 09:46
[2016-12-17 09:47] LABS: POS OBC UR POS
[2016-12-17] MEDS ORDERED: SEVOFLURANE 61 TO 120 MINUTES. IH ONE (10:28)
[2016-12-17] MEDS ORDERED: KETOROLAC 30 MG/ML INJ FOR OR. INJ ONE (10:40)
[2016-12-17] MEDS ORDERED: ACETAMINOPHEN INTRAVENOUS 100 ML IV ONE (10:41)
--- NOTE | 2016-12-17 10:53 | PDOC4 ---
Operative Note Operative Note Date of Procedure: December 17, 2016 Preoperative diagnosis: Closed right distal radius intra-articular fracture Postoperative diagnosis: Closed right distal radius intra-articular fracture Procedure: Open treatment with internal fixation right distal radius intra -articular fracture Surgeon: Kimberly Hurd MD. Asst.: Beti Atkinson PA-C Anesthesia Type: General EBL: 10 mL Specimens: none Drains: none Complications: none Tourniquet time: 30 minutes Implant Company: [employer] INDICATION FOR PROCEDURE: The patient is a 36 -year-old who fell and had a displaced right distal radius fracture. X-rays showed a displaced intra- articular fracture. I recommended open treatment with internal fixation. We talked about potential risks of surgery such as bleeding, infection, stiffness, need for hardware removal or other potential surgical or anesthetic complications. The patient stated understanding of the risks, benefits and alternatives. Written consent was obtained and the patient desired to proceed with surgery. PROCEDURE IN DETAIL: The patient was identified in the preoperative holding area. The correct right wrist was marked by me. The patient was taken to the operating room, where a general anesthetic was used. Preoperative antibiotics were given intravenously. A timeout procedure was performed. Tourniquet was used on the upper right arm. The limb was prepped sterilely and sterile drapes were applied. An Esmarch bandage was used to exsanguinate the limb and the tourniquet was inflated to 250 mmHg. The volar approach of Daniel was used distally. Sharp dissection was used and Bovie electrocautery was used as needed for hemostasis. The flexor carpi radialis tendon was retracted ulnarly to protect the median nerve. The brachioradialis was retracted radially to protect the radial artery. My call center assistant used small Hohmann retractors on the radial side of the distal fragment and ulnar side of the proximal fragment to help maintain reduction. A Weitlaner retractor was also placed. Subperiosteal dissection of the pronator quadratus was performed after an L incision was made and the muscle was reflected across the fracture site. The fracture was easily identified but markedly displaced, comminuted and unstable. I performed a reduction first using a Gardiner elevator to disimpact the fragments, and using longitudinal traction, and volar to palmar compression, the fracture was able to be reduced. The reduction was stabilized with a K wire prior to plate application. The small image intensifier device was used to check the reduction, and I used the image intensifier throughout the case and interpreted all of the images myself. I then applied a volar plate, placed a single screw, and again checked the position of the plate on the image intensifier. I adjusted the plate as needed for satisfactory alignment and fixation. I placed a single cortical screw in the oval hole for fixation of the plate to the bone and buttressed against the volar displacement of the original fracture. I placed additional locking screws distally and locking screws proximally and I confirmed the reduction with the image intensifier. After satisfactory reduction and satisfactory fixation with all the screws, final images were taken. Copious irrigation was used. The tourniquet was released and Bovie electrocautery was used for hemostasis. Bupivacaine 0.25% with epinephrine was injected. The incision was closed with 3-0 Vicryl in the subcutaneous tissues and christie in the skin. My call center assistant did the skin closure. Xeroform and a sterile dressing and a volar splint were applied. Needle and sponge counts were correct. There were no apparent complications KIMBERLY HURD MD Dec 17, 2016 10:53
[2016-12-17] MEDS ORDERED: ESMOLOL 100 MG/10 ML VIAL. IV ONE (10:54)
[2016-12-17] MEDS ORDERED: PROM25TA10 PO (11:02)
[2016-12-17] MEDS ORDERED: OXYC-323 PO ×2 (11:02→11:47)
[2016-12-17] MEDS ORDERED: OXYCODONE/APAP 5/325 TABLET. PO ONE (12:00)
[2016-12-17 12:25] VITALS: BP 119/71
== END 2016-12-17 12:57 | disposition home or self-care (01) ==
LOC: SURG 08:35
PROVIDERS: ATTEND Orthopaedic Surgery
DX: S52.571A Other intraarticular fracture of lower end of right radius, initial encounter for closed fracture (principal); X58.XXXA Exposure to other specified factors, initial encounter; Y93.9 Activity, unspecified; Y92.9 Unspecified place or not applicable; Y99.9 Unspecified external cause status; E78.00 Pure hypercholesterolemia, unspecified; J45.909 Unspecified asthma, uncomplicated; E78.5 Hyperlipidemia, unspecified; M19.90 Unspecified osteoarthritis, unspecified site; F41.9 Anxiety disorder, unspecified; F32.9 Major depressive disorder, single episode, unspecified; Z98.51 Tubal ligation status; Z87.442 Personal history of urinary calculi; Z87.440 Personal history of urinary (tract) infections; Z72.0 Tobacco use; Z82.49 Family history of ischemic heart disease and other diseases of the circulatory system
CPT/HCPCS: 25608; 81025; A4215; C1713; J0131; J0690; J0780; J1100; J1170; J1885; J2250; J2405; J2704; J3010; J3490

== ENCOUNTER 2017-02-28 17:35 | Emergency (ER) | payer SELFPAY ==
[~2017-02-28] VITALS: Ht 157.5 cm; Wt 65.8 kg
[~2017-02-28 17:35] MED LIST changes: -HYDR-2666 PO; -HYDR-2672 PO; +HYDR-2758 PO; +HYDR-2766 PO; +OXYC-323 PO; -OXYC10TA32 PO; +OXYC10TA45 PO; -TOPI100T39 PO; +TOPI100T42 PO
[2017-02-28 17:46] VITALS: BP 149/94
[2017-02-28 18:23] LABS: BILIRUBIN,URINE SMALL (NEG); GLUCOSE,URINE NEGATIVE (NEG); NITRITE,URINE POSITIVE (NEG); PROTEIN,URINE NEGATIVE (NEG-TRACE); UROBILINOGEN,URINE 0.2 mg/dL (0.2 mg/dL)
[2017-02-28] MEDS ORDERED: IV NORMAL SALINE 1000ML BAG 1,000 ML IV ONE (18:30)
[2017-02-28 18:32] LABS: BACTERIA,URINE MANY /HPF (0-FEW); SQUAMOUS EPITHELIAL CELL,UR OCC /LPF
[2017-02-28] MEDS ORDERED: KETOROLAC TROMETHAMINE 30 MG/ML INJ. IV ONE (18:45)
[2017-02-28] MEDS ORDERED: ONDANSETRON PF 4 MG/2 ML VIAL. IV ONE (18:45)
[2017-02-28 18:48] LABS: BASO # 0.1 x10^3/uL (0.0-0.2); BASO % 1 % (0-3); EOS % 1 % (0-3); HEMATOCRIT 45.1 % (36.0-47.0); LYMPH # 3.5 x10^3/uL (1.0-4.8); LYMPH % 31 % (24-48); MEAN CORPUSCULAR HEMOGLOBIN 31 pg (25-35); MEAN CORPUSCULAR HGB CONC 33 g/dL (31-37); MEAN CORPUSCULAR VOLUME 94 fL (79-100); MONO % 8 % (0-9); NEUT % 60 % (31-73); PLATELET COUNT 298 x10^3/uL (140-400); RED BLOOD COUNT 4.78 x10^6/uL (3.50-5.40); RED CELL DISTRIBUTION WIDTH 12.9 % (11.5-14.5); WHITE BLOOD COUNT 11.3 x10^3/uL (4.0-11.0)
[2017-02-28 18:58] LABS: CREATININE 0.7 mg/dL (0.6-1.0); GFR 94.2; POTASSIUM 3.7 mmol/L (3.5-5.1)
[2017-02-28 19:04] LABS: ALBUMIN 3.8 g/dL (3.4-5.0); ALBUMIN/GLOBULIN RATIO 1.2 (1.0-1.7); TOTAL BILIRUBIN 0.3 mg/dL (0.2-1.0); TOTAL PROTEIN 7.1 g/dL (6.4-8.2)
--- NOTE | 2017-02-28 19:33 | RAD ---
PQRS STATEMENT: One or more of the following in the visualized dose reduction techniques were utilized for this study: 1. Automatic exposure control, 2. Adjustment of the mA and/or kV according to patient size, 3. Use of iterative reconstruction technique CT ABDOMEN/PELVIS Indication:bilateral flank pain
h/o kidney stones
prior sent Technique: Multiple contiguous axial images were obtained through the abdomen and pelvis. Coronal and sagittal reformations were created. Comparison: 10/07/2016 Findings: There is unchanged cortical scarring and nephrolithiasis of the left kidney but no hydronephrosis or hydroureter. The largest stone on the left measures 6 mm. There is no renal stone on the right. There is no ureteral calculus. Heart size is normal. There is a unchanged 3 mm nodule in the right lateral sulcus.Evaluation of the abdominal viscera is limited in the absence of IV contrast. The liver and spleen are normal in size. There appears to be wall thickening of the gallbladder. The gallbladder is nondistended. The pancreas, and adrenal glands are within normal limits. There is no abdominopelvic ascites. Abdominal aorta is normal in caliber. .The bowel loops are normal in caliber. The appendix is normal.No destructive osseus lesions are identified. Tubal ligation clips are noted in the adnexa. Impression: Nonobstructive left nephrolithiasis. There appears to be wall thickening of the gallbladder. Consider abdominal ultrasound if there are clinical signs and symptoms of acute cholecystitis. Electronically signed by: Sonny Barboza MD (02/28/2017 7:29 PM) [facility]
[2017-02-28] MEDS ORDERED: PROM25TA10 PO (20:28)
[2017-02-28] MEDS ORDERED: CIPR500T94 PO (20:28)
--- NOTE | 2017-02-28 20:28 | PHYS DOC ---
Past Medical History Past Medical History: Anxiety, Asthma, Depression, Kidney Stone, Other Additional Past Medical Histor: Back Pain, DDD, INSOMNIA, PTSD, MULTIPLE PERSONALITY DISORDER Past Surgical History: Tubal ligation, Other Additional Past Surgical Histo: CYSTOSCOPY WITH STENT PLACEMENT, I&D OF ABSCESS TO BACK, L WRIST FX Alcohol Use: None Drug Use: None Adult General Chief Complaint Chief Complaint: FLANK PAIN HPI HPI Patient is a 36 year old female who presents today with bilateral flank pain for the last 1 month and foul-smelling urine. Patient states she has history of kidney stones. Denies any hematuria. Denies any vomiting but states she's had intermittent episodes of nausea. Review of Systems Review of Systems Constitutional: Denies fever or chills [] Eyes: Denies change in visual acuity, redness, or eye pain [] HENT: Denies nasal congestion or sore throat [] Respiratory: Denies cough or shortness of breath [] Cardiovascular: No additional information not addressed in HPI [] GI: Denies abdominal pain, nausea, vomiting, bloody stools or diarrhea [] : Bilateral flank pain and foul-smelling urine Musculoskeletal: Denies back pain or joint pain [] Integument: Denies rash or skin lesions [] Neurologic: Denies headache, focal weakness or sensory changes [] Endocrine: Denies polyuria or polydipsia [] Current Medications Current Medications Current Medications Medications (Trade) Dose Ordered Sig/[facility] Start Time Stop Time Status Last Admin Dose Admin Alprazolam (Xanax) 0.5 mg STK-MED ONCE 02/28/17 20:41 02/28/17 20:42 DC Ketorolac Tromethamine (Toradol) 30 mg 1X ONCE 02/28/17 18:45 02/28/17 18:46 DC 02/28/17 18:43 30 MG Morphine Sulfate 2 mg STK-MED ONCE 02/28/17 20:40 02/28/17 20:41 DC Ondansetron HCl (Zofran) 4 mg 1X ONCE 02/28/17 18:45 02/28/17 18:46 DC 02/28/17 18:37 4 MG Sodium Chloride 1,000 ml @ 1,000 mls/hr 1X ONCE 02/28/17 18:30 02/28/17 19:29 DC 02/28/17 18:36 1,000 MLS/HR Allergies Allergies Allergies Coded Allergies Type Severity Reaction Last Updated Verified fentanyl Allergy Mild Nausea and Vomiting 12/17/16 Yes prednisone Adverse Reaction Intermediate 12/17/16 No Physical Exam Physical Exam Constitutional: Well developed, well nourished, no acute distress, non-toxic appearance. [] HENT: Normocephalic, atraumatic, bilateral external ears normal, oropharynx moist, no oral exudates, nose normal. [] Eyes: PERRLA, EOMI, conjunctiva normal, no discharge. [] Neck: Normal range of motion, no tenderness, supple, no stridor. [] Cardiovascular:Heart rate regular rhythm, no murmur [] Lungs & Thorax: Bilateral breath sounds clear to auscultation [] Abdomen: Bowel sounds normal, soft, no tenderness, no masses, no pulsatile masses. [] Skin: Warm, dry, no erythema, no rash. [] Back: No tenderness, mild bilateral CVA tenderness. [] Extremities: No tenderness, no cyanosis, no clubbing, ROM intact, no edema. [] Neurologic: Alert and oriented X 3, normal motor function, normal sensory function, no focal deficits noted. [] Psychologic: Affect normal, judgement normal, mood normal. [] Current Patient Data Vital Signs Vital Signs Date Time Temp Pulse Resp B/P (MAP) Pulse Ox O2 Delivery O2 Flow Rate FiO2 02/28/17 17:46 97.7 81 20 149/94 (112) 98 Room Air 97.7 Lab Values Laboratory Tests Test 02/28/17 16:52 02/28/17 17:40 02/28/17 18:35 POC Urine HCG, Qualitative Hcg negative (Negative) Urine Color Hedy Urine Clarity Cloudy Urine pH 6.0 Urine Specific Rutledge >=1.030 Urine Protein Negative mg/dL (NEG-TRACE) Urine Glucose (UA) Negative mg/dL (NEG) Urine Ketones (Stick) Negative mg/dL (NEG) Urine Blood Moderate (NEG) Urine Nitrite Positive (NEG) Urine Bilirubin Small (NEG) Urine Urobilinogen Dipstick 0.2 mg/dL (0.2 mg/dL) Urine Leukocyte Esterase Moderate (NEG) Urine RBC 3-5 /HPF (0-2) Urine WBC 11-20 /HPF (0-4) Urine Squamous Epithelial Cells Occ /LPF Urine Bacteria Many /HPF (0-FEW) Urine Mucus Mod /LPF White Blood Count 11.3 x10^3/uL (4.0-11.0) H Red Blood Count 4.78 x10^6/uL (3.50-5.40) Hemoglobin 15.0 g/dL (12.0-15.5) Hematocrit 45.1 % (36.0-47.0) Mean Corpuscular Volume 94 fL (79-100) Mean Corpuscular Hemoglobin 31 pg (25-35) Mean Corpuscular Hemoglobin Concent 33 g/dL (31-37) Red Cell Distribution Width 12.9 % (11.5-14.5) Platelet Count 298 x10^3/uL (140-400) Neutrophils (%) (Auto) 60 % (31-73) Lymphocytes (%) (Auto) 31 % (24-48) Monocytes (%) (Auto) 8 % (0-9) Eosinophils (%) (Auto) 1 % (0-3) Basophils (%) (Auto) 1 % (0-3) Neutrophils # (Auto) 6.8 x10^3uL (1.8-7.7) Lymphocytes # (Auto) 3.5 x10^3/uL (1.0-4.8) Monocytes # (Auto) 0.9 x10^3/uL (0.0-1.1) Eosinophils # (Auto) 0.1 x10^3/uL (0.0-0.7) Basophils # (Auto) 0.1 x10^3/uL (0.0-0.2) Sodium Level 139 mmol/L (136-145) Potassium Level 3.7 mmol/L (3.5-5.1) Chloride Level 104 mmol/L (98-107) Carbon Dioxide Level 24 mmol/L (21-32) Anion Gap 11 (6-14) Blood Urea Nitrogen 17 mg/dL (7-20) Creatinine 0.7 mg/dL (0.6-1.0) Estimated GFR (Cockcroft-Gault) 94.2 BUN/Creatinine Ratio 24 (6-20) H Glucose Level 126 mg/dL (70-99) H Calcium Level 9.0 mg/dL (8.5-10.1) Total Bilirubin 0.3 mg/dL (0.2-1.0) Aspartate Amino Transferase (AST) 18 U/L (15-37) Alanine Aminotransferase (ALT) 24 U/L (14-59) Alkaline Phosphatase 81 U/L (46-116) Total Protein 7.1 g/dL (6.4-8.2) Albumin 3.8 g/dL (3.4-5.0) Albumin/Globulin Ratio 1.2 (1.0-1.7) Lipase 86 U/L (73-393) Laboratory Tests 02/28/17 18:35 Laboratory Tests 02/28/17 18:35 EKG EKG [] Radiology/Procedures Radiology/Procedures []PROCEDURE: CT ABDOMEN PELVIS WO CONTRAST PQRS STATEMENT: One or more of the following in the visualized dose reduction techniques were utilized for this study: 1. Automatic exposure control, 2. Adjustment of the mA and/or kV according to patient size, 3. Use of iterative reconstruction technique CT ABDOMEN/PELVIS Indication:bilateral flank pain
h/o kidney stones
prior sent Technique: Multiple contiguous axial images were obtained through the abdomen and pelvis. Coronal and sagittal reformations were created. Comparison: 10/07/2016 Findings: There is unchanged cortical scarring and nephrolithiasis of the left kidney but no hydronephrosis or hydroureter. The largest stone on the left measures 6 mm. There is no renal stone on the right. There is no ureteral calculus. Heart size is normal. There is a unchanged 3 mm nodule in the right lateral sulcus.Evaluation of the abdominal viscera is limited in the absence of IV contrast. The liver and spleen are normal in size. There appears to be wall thickening of the gallbladder. The gallbladder is nondistended. The pancreas, and adrenal glands are within normal limits. There is no abdominopelvic ascites. Abdominal aorta is normal in caliber. .The bowel loops are normal in caliber. The appendix is normal.No destructive osseus lesions are identified. Tubal ligation clips are noted in the adnexa. Impression: Nonobstructive left nephrolithiasis. There appears to be wall thickening of the gallbladder. Consider abdominal ultrasound if there are clinical signs and symptoms of acute cholecystitis. Electronically signed by: Sonny Barboza MD (02/28/2017 7:29 PM) [facility] Course & Med Decision Making Course & Med Decision Making Pertinent Labs and Imaging studies reviewed. (See chart for details) This is a 36-year-old female patient with history of kidney stones presenting with flank pain and foul-smelling urine. CBC with a WBC of 11.3, CMP with no acute findings, urine positive for infection. CT of the abdomen and pelvic was noted for left renal calculi. I went to give patient results. Found patient very upset. She states she informed one of the [employer]'s that she was in pain and wanted something for anxiety a while ago but no one has brought her any medicines. Informed patient no one told me but i will order her some more pain medicine and xanax. Informed patient she'll not be discharged with Xanax but can f/u with [facility]. Discharged with Cipro Flomax, hydrocodone and promethazine. Follow-up with her PCP or urologist in 1-2 weeks and [facility]. Tess Disclaimer Dragon Disclaimer This electronic medical record was generated, in whole or in part, using a voice recognition dictation system. Departure Departure Impression: Primary Impression: Renal calculus Additional Impressions: Pyelonephritis Anxiety Disposition: 01 HOME, SELF-CARE Condition: STABLE Referrals: PHU GONZALES APRN (PCP) follow up with your doctor in one week Patient Instructions: Kidney Stones, Pyelonephritis, Adult Additional Instructions: You have a kidney infection and kidney stones. Please complete your antibiotics. Scripts Tamsulosin Hcl (FLOMAX) 0.4 Mg Cap.er.24h 1 CAP PO DAILY, #7 CAP 11 Refills Prov: ELYSIA MUÑOZ APRN 02/28/17 Hydrocodone/Apap 5-325 (NORCO 5-325 TABLET) 1 Each Tablet 1-2 TAB PO Q4-6HRS, #14 TAB Prov: ELYSIA MUÑOZ APRN 02/28/17 Promethazine Hcl (PROMETHAZINE HCL) 25 Mg Tablet 1 TAB PO PRN Q6HRS, #20 TAB Prov: ELYSIA MUÑOZ APRN 02/28/17 Ciprofloxacin Hcl (CIPRO) 500 Mg Tablet 1 TAB PO BID, #14 TAB Prov: ELYSIA MUÑOZ APRN 02/28/17 Problem Qualifiers ELYSIA MUÑOZ APRN Feb 28, 2017 20:28
[2017-02-28] MEDS ORDERED: HYDR-971 PO (20:36)
[2017-02-28] MEDS ORDERED: MORPHINE SULFATE 2 MG/ML DISP.SYRIN. ONE (20:40)
[2017-02-28] MEDS ORDERED: TAMS0.4C97 PO (20:41)
[2017-02-28] MEDS ORDERED: ALPRAZolam 0.5 MG TABLET ONE (20:41)
[2017-02-28] MEDS ORDERED: MORPHINE SULFATE 2 MG/ML DISP.SYRIN. IV ONE (20:45)
[2017-02-28] MEDS ORDERED: ALPRAZolam 0.5 MG TABLET PO ONE (21:00)
[2017-02-28] MEDS ORDERED: ALPRAZolam 1 MG TABLET PO ONE (21:00)
== END 2017-02-28 21:00 | disposition home or self-care (01) ==
LOC: ER 17:35
DX: N12 Tubulo-interstitial nephritis, not specified as acute or chronic (principal); N20.0 Calculus of kidney; F41.9 Anxiety disorder, unspecified; J45.909 Unspecified asthma, uncomplicated; F43.10 Post-traumatic stress disorder, unspecified; Z87.442 Personal history of urinary calculi; F44.81 Dissociative identity disorder; F32.9 Major depressive disorder, single episode, unspecified; G47.00 Insomnia, unspecified; Z98.51 Tubal ligation status; Z88.4 Allergy status to anesthetic agent; Z88.8 Allergy status to other drugs, medicaments and biological substances
CPT/HCPCS: 36415; 74176; 80053; 81001; 81025; 83690; 85027; 87086; 96361; 96374; 96375; 99285; J1885; J2270; J2405; J7030

== ENCOUNTER 2017-04-07 13:47 | Emergency (ER) | payer SELFPAY ==
[~2017-04-07] VITALS: Ht 157.5 cm; Wt 73.5 kg
[~2017-04-07 13:47] MED LIST changes: +CIPR500T94 PO; +HYDR-971 PO; +TAMS0.4C97 PO
[2017-04-07 14:04] VITALS: BP 120/79
--- NOTE | 2017-04-07 14:18 | PHYS DOC ---
Past Medical History Past Medical History: Anxiety, Asthma, Depression, Kidney Stone, Other Additional Past Medical Histor: Back Pain, DDD, INSOMNIA, PTSD, MULTIPLE PERSONALITY DISORDER Past Surgical History: Tubal ligation, Other Additional Past Surgical Histo: CYSTOSCOPY WITH STENT PLACEMENT, I&D OF ABSCESS TO BACK, L WRIST FX Alcohol Use: None Drug Use: None Adult General Chief Complaint Chief Complaint: KNEE INJURY HPI HPI Patient is a 36 year old female with history of anxiety, asthma, depression, multiple personality disorders, who presents today complaining of moderate right knee pain that has been going on for 1 month. She describes the pain as throbbing. Patient states the pain is worse on weight-bearing. Denies any trauma. She is also complaining of right distal ulnar bone pain that has been going on for the same amount of time with no known injury. She states she has previously broken her wrist and had surgery done at [facility] Review of Systems Review of Systems Constitutional: Denies fever or chills [] Musculoskeletal: Right wrist and right knee pain Integument: Denies rash or skin lesions [] Neurologic: Denies headache, focal weakness or sensory changes [] Current Medications Current Medications Current Medications Medications (Trade) Dose Ordered Sig/Mariel Start Time Stop Time Status Last Admin Dose Admin Promethazine HCl (Phenergan) 25 mg 1X ONCE 04/07/17 14:30 04/07/17 14:31 DC Allergies Allergies Allergies Coded Allergies Type Severity Reaction Last Updated Verified oxycodone Allergy Intermediate Rash 04/07/17 Yes fentanyl Allergy Mild Nausea and Vomiting 12/17/16 Yes prednisone Adverse Reaction Intermediate 12/17/16 No Physical Exam Physical Exam Constitutional: Well developed, well nourished, no acute distress, non-toxic appearance. [] Skin: Warm, dry, no erythema, no rash. [] Back: No tenderness, no CVA tenderness. [] Extremities: Right knee with no obvious edema and obvious deformity and no ecchymosis. Tenderness diffusely on palpation of the right medial knee. Full range of motion to the right knee including negative Mary Grace sign and negative aKte's sign negative anterior-posterior drawer sign. +2 right pedal pulse. Cap refill less than 2 seconds the right lower extremity. Right wrist with no obvious deformity. Old healed surgical incision noted midline and distal wrist. No scaphoid tenderness on the right wrist. Full range of motion to the right wrist and fingers. Adequate radial medial and ulnar sensation to the right upper extremity. Cap refill less than 2 seconds the right fingers. Neurologic: Alert and oriented X 3, normal motor function, normal sensory function, no focal deficits noted. [] Psychologic: Affect normal, judgement normal, mood normal. [] Current Patient Data Vital Signs Vital Signs Date Time Temp Pulse Resp B/P (MAP) Pulse Ox O2 Delivery O2 Flow Rate FiO2 04/07/17 14:04 98.0 83 20 97 Room Air 98.0 EKG EKG [] Radiology/Procedures Radiology/Procedures []PROCEDURE: WRIST 3V RIGHT Exam: Right wrist radiograph 04/07/2017 at 1404 hours Indication: Pain Comparison: Right wrist radiograph 12/16/2016 Technique: 3 views of the right wrist are provided. Findings: Volar plate and screw fixation of a distal radial fracture. Fracture lines extending to the radiocarpal joint appear well corticated and likely remote. Remote ulnar styloid process fracture without osseous bridging. Carpal joints are intact. Impression: Volar plate and screw fixation of a distal radius fracture without periprosthetic lucency to suggest hardware failure. Remote ulnar styloid fracture. DICTATED and SIGNED BY: RAHEEM FRANKS MD DATE: 04/07/17 1428 CC: ELYSIA MUÑOZ APRN; PHU GONZALES APRN ~ PROCEDURE: KNEE RIGHT 4V Right knee radiograph 04/07/2017 at 1416 hours Indication: Pain and swelling Comparison: None available Technique: 4 views of the right knee are provided. Findings: There is no acute fracture or dislocation. Joint spaces are maintained. No knee joint effusion. Bone mineralization is within normal limits. No significant soft tissue abnormality. Impression: No acute fracture or dislocation. DICTATED and SIGNED BY: RAHEEM FRANKS MD DATE: 04/07/17 1223 CC: ELYSIA MUÑOZ APRN; PHU GONZALES APRN ~ Course & Med Decision Making Course & Med Decision Making Pertinent Labs and Imaging studies reviewed. (See chart for details) Patient is in the ED with complaints of right knee and right wrist pain for month. No known injury but states she has history of right wrist fracture with fixation. Right knee x-rays interpreted by radiologist were negative for any acute findings. Right wrist x-rays interpreted by radiologist were noted for old ulnar styloid fracture. Patient was discharged with instructions to follow- up with orthopedic doctor. Discharged with naproxen. Ice elevation encouraged. Dragon Disclaimer Dragon Disclaimer This electronic medical record was generated, in whole or in part, using a voice recognition dictation system. Departure Departure Impression: Primary Impression: Knee pain, right Additional Impression: Ulna styloid fracture, closed Disposition: 01 HOME, SELF-CARE Condition: STABLE Referrals: PHU GONZALES APRN (PCP) JOHN PAUL MUNROE II, MD follow up as soon as you can Patient Instructions: Knee Pain, [id number], Ulnar Fracture Additional Instructions: You were seen for right knee pain. Your right knee x-rays were negative for any acute findings. Ice and elevate the extremity. Continue taking naproxen as needed for pain. Your right wrist x-ray shows an old ulnar styloid fracture. Continue following up with orthopedic doctor for the wrist and knee pain. Problem Qualifiers Primary Impression: Knee pain, right Chronicity: acute Qualified Codes: M25.561 - Pain in right knee Additional Impression: Ulna styloid fracture, closed Encounter type: subsequent encounter Fracture alignment: nondisplaced Laterality: right Fracture healing: with routine healing Qualified Codes: S52.614D - Nondisplaced fracture of right ulna styloid process, subsequent encounter for closed fracture with routine healing ELYSIA MUÑOZ APRN Apr 07, 2017 14:18
--- NOTE | 2017-04-07 14:28 | RAD ---
Right knee radiograph 04/07/2017 at 1416 hours Indication: Pain and swelling Comparison: None available Technique: 4 views of the right knee are provided. Findings: There is no acute fracture or dislocation. Joint spaces are maintained. No knee joint effusion. Bone mineralization is within normal limits. No significant soft tissue abnormality. Impression: No acute fracture or dislocation.
[2017-04-07] MEDS ORDERED: PROMETHAZINE 12.5 MG TABLET. PO ONE (14:30)
--- NOTE | 2017-04-07 14:33 | RAD ---
Exam: Right wrist radiograph 04/07/2017 at 1404 hours Indication: Pain Comparison: Right wrist radiograph 12/16/2016 Technique: 3 views of the right wrist are provided. Findings: Volar plate and screw fixation of a distal radial fracture. Fracture lines extending to the radiocarpal joint appear well corticated and likely remote. Remote ulnar styloid process fracture without osseous bridging. Carpal joints are intact. Impression: Volar plate and screw fixation of a distal radius fracture without periprosthetic lucency to suggest hardware failure. Remote ulnar styloid fracture.
== END 2017-04-07 14:50 | disposition home or self-care (01) ==
LOC: ER 13:47
DX: S52.614D Nondisplaced fracture of right ulna styloid process, subsequent encounter for closed fracture with routine healing (principal); M25.561 Pain in right knee; F41.9 Anxiety disorder, unspecified; J45.909 Unspecified asthma, uncomplicated; F32.9 Major depressive disorder, single episode, unspecified; G47.00 Insomnia, unspecified; F43.10 Post-traumatic stress disorder, unspecified; Z88.5 Allergy status to narcotic agent; Z88.8 Allergy status to other drugs, medicaments and biological substances; Z88.4 Allergy status to anesthetic agent; X58.XXXD Exposure to other specified factors, subsequent encounter
CPT/HCPCS: 73110; 73564; 99284; Q0169

== ENCOUNTER 2017-07-11 11:04 | Emergency (ER) | payer SELFPAY ==
[~2017-07-11] VITALS: Ht 157.5 cm; Wt 72.6 kg
[~2017-07-11 11:04] MED LIST changes: +AMOX1TAB11 PO; +QUET300T5 PO
[2017-07-11] MEDS ORDERED: ONDANSETRON ODT 4 MG TAB.RAPDIS. PO ONE (11:45)
[2017-07-11 12:02] LABS: NEG OBC UR NEG; POS OBC UR POS
[2017-07-11 13:31] VITALS: BP 158/75
[2017-07-11 13:56] LABS: BILIRUBIN,URINE NEGATIVE (NEG); GLUCOSE,URINE NEGATIVE (NEG); NITRITE,URINE NEGATIVE (NEG); PROTEIN,URINE NEGATIVE (NEG-TRACE)
[2017-07-11 14:26] LABS: BACTERIA,URINE FEW /HPF (0-FEW); RBC,URINE 0 /HPF (0-2); SQUAMOUS EPITHELIAL CELL,UR OCC /LPF
== END 2017-07-11 13:34 | disposition left against medical advice (07) ==
LOC: ER 11:04
DX: R11.2 Nausea with vomiting, unspecified (principal); R19.7 Diarrhea, unspecified
CPT/HCPCS: 81001; 81025; 99284; Q0162

== ENCOUNTER 2017-08-18 19:31 | Emergency (ER) | payer SELFPAY ==
[2017-08-18] MEDS ORDERED: MORPHINE SULFATE 4 MG/ML DISP.SYRIN. IM (20:00)
[2017-08-18 20:03] LABS: ADD MAN DIFF? NO
[2017-08-18 20:05] LABS: BASO % 0 % (0-3); EOS % 1 % (0-3); HEMATOCRIT 48.1 % (36.0-47.0); HEMOGLOBIN 16.1 g/dL (12.0-15.5); LYMPH # 4.7 x10^3/uL (1.0-4.8); LYMPH % 43 % (24-48); MEAN CORPUSCULAR HEMOGLOBIN 32 pg (25-35); MEAN CORPUSCULAR HGB CONC 34 g/dL (31-37); MEAN CORPUSCULAR VOLUME 94 fL (79-100); MONO % 7 % (0-9); NEUT % 48 % (31-73); PLATELET COUNT 287 x10^3/uL (140-400); RED BLOOD COUNT 5.12 x10^6/uL (3.50-5.40); RED CELL DISTRIBUTION WIDTH 13.4 % (11.5-14.5); WHITE BLOOD COUNT 10.9 x10^3/uL (4.0-11.0)
[2017-08-18] MEDS: IV NORMAL SALINE 1000ML BAG 1,000 ML IV (20:09)
[2017-08-18] MEDS: ONDANSETRON PF 4 MG/2 ML VIAL. IV ×3 (20:09→21:42)
[2017-08-18] MEDS: KETOROLAC 30 MG/ML INJ. IV (20:09)
[2017-08-18 20:11] LABS: BILIRUBIN,URINE NEGATIVE (NEG); GLUCOSE,URINE NEGATIVE (NEG); NITRITE,URINE POSITIVE (NEG); PROTEIN,URINE NEGATIVE (NEG-TRACE); UROBILINOGEN,URINE 0.2 mg/dL (0.2 mg/dL)
[2017-08-18] MEDS: MORPHINE SULFATE 4 MG/ML DISP.SYRIN. IV ×2 (20:17→21:35)
[2017-08-18 20:19] LABS: ANION GAP 11 (6-14); BLOOD UREA NITROGEN 12 mg/dL (7-20); BUN/CREATININE RATIO 15 (6-20); CALCIUM 9.4 mg/dL (8.5-10.1); CARBON DIOXIDE 28 mmol/L (21-32); CHLORIDE 102 mmol/L (98-107); CREATININE 0.8 mg/dL (0.6-1.0); GFR 80.3; GLUCOSE 98 mg/dL (70-99); POTASSIUM 3.8 mmol/L (3.5-5.1); SODIUM 141 mmol/L (136-145)
[2017-08-18 20:24] LABS: ALBUMIN 3.8 g/dL (3.4-5.0); ALK PHOS 97 U/L (46-116); ALT (SGPT) 24 U/L (14-59); AST (SGOT) 17 U/L (15-37); TOTAL BILIRUBIN 0.2 mg/dL (0.2-1.0); TOTAL PROTEIN 7.7 g/dL (6.4-8.2)
[2017-08-18 20:30] LABS: BACTERIA,URINE MODERATE /HPF (0-FEW); RBC,URINE 0 /HPF (0-2); SQUAMOUS EPITHELIAL CELL,UR MOD /LPF
== END 2017-08-18 22:00 | disposition home or self-care (01) ==
LOC: ER 19:31
DX: N12 Tubulo-interstitial nephritis, not specified as acute or chronic (principal); N39.0 Urinary tract infection, site not specified; F41.9 Anxiety disorder, unspecified; J45.909 Unspecified asthma, uncomplicated; F32.9 Major depressive disorder, single episode, unspecified; E78.00 Pure hypercholesterolemia, unspecified; F43.10 Post-traumatic stress disorder, unspecified; G47.00 Insomnia, unspecified; Z98.51 Tubal ligation status; Z87.442 Personal history of urinary calculi; Z88.5 Allergy status to narcotic agent; Z88.4 Allergy status to anesthetic agent; Z88.8 Allergy status to other drugs, medicaments and biological substances
CPT/HCPCS: 36415; 74176; 80053; 81001; 85025; 87086; 87186; 96361; 96365; 96375; 96376; 99285-25; J0690; J1885; J2270; J2405; J7030

== ENCOUNTER → 2017-12-23 | Outpatient (CLI) | payer OTHER | END | disposition home or self-care (01) | LOC: US 15:31 | DX: R10.2 Pelvic and perineal pain (principal); E78.5 Hyperlipidemia, unspecified; E78.00 Pure hypercholesterolemia, unspecified | CPT/HCPCS: 76830; 76856 ==

== ENCOUNTER → 2018-08-08 | Outpatient (CLI) | payer OTHER ==
[2017-08-18 21:30] VITALS: BP 134/75
[~2018-08-08] MED LIST changes: +CEPH-264 PO; -HYDR-2758 PO; +HYDR-2761 PO; -HYDR-2766 PO; +HYDR-2769 PO; +HYDR-3164 PO; -HYDR-971 PO; +IOHEXOL 240 MG/ML 50ML VIAL. PO ONE; +IOHEXOL 300 MG/ML 100ML VIAL. IV ONE; -OXYC-323 PO; -OXYC10TA45 PO; +OXYC10TA46 PO; +OXYC1TAB15 PO
--- NOTE | 2018-08-08 11:10 | RAD ---
EXAM: CT Abdomen and Pelvis with IV contrast CLINICAL HISTORY: Abdominal pain for one year. COMPARISON: CT 08/18/2017, 02/28/2017 TECHNIQUE: Helical CT of the abdomen and pelvis was performed following the administration of intravenous contrast. Oral contrast was administered. Axial, coronal and sagittal reformatted images were generated. PQRS compliance statement - One or more of the following individualized dose reduction techniques were utilized for this study: 1. Automated exposure control 2. Adjustment of the mA and/or kV according to patient size 3. Use of iterative reconstruction technique FINDINGS: Lower chest: Mild dependent opacities bilaterally likely atelectasis. 4 mm peripheral right lower lobe lung nodule is stable (series 2 image 8). Abdomen and Pelvis: No focal liver lesion. Cholecystectomy clips are seen. No biliary duct dilatation. Pancreas is unremarkable. Spleen is normal in appearance. Adrenal glands are unremarkable. Symmetric nephrograms. Left interpolar renal cortical scarring with dystrophic calcifications, grossly stable in appearance. Otherwise no focal renal lesion. No hydronephrosis. No hydroureter. The decompressed bladder is otherwise unremarkable. Moderate colonic stool content. The appendix is normal. No small or large bowel dilatation to suggest bowel obstruction. No abdominal or pelvic ascites or lymphadenopathy. Small fat-containing periumbilical hernia is seen. There has been a hysterectomy. Bones: Grossly unremarkable. IMPRESSION: 1. There has been a cholecystectomy and hysterectomy. 2. No abdominal pelvic ascites or lymphadenopathy. 3. Small fat-containing periumbilical hernia is seen. 4. Moderate colonic stool content is seen. No bowel obstruction. 5. Appendix is normal. Electronically signed by: Jason Vance MD (08/08/2018 11:06 AM) [facility]
== END | disposition home or self-care (01) ==
LOC: CT 08:41
DX: R91.1 Solitary pulmonary nodule (principal); K42.9 Umbilical hernia without obstruction or gangrene; Z90.49 Acquired absence of other specified parts of digestive tract
CPT/HCPCS: 74177; Q9966; Q9967

== ENCOUNTER 2019-01-21 14:22 | Emergency (ER) | payer OTHER ==
[~2019-01-21] VITALS: Ht 157.5 cm; Wt 70.8 kg
[~2019-01-21 14:22] MED LIST changes: -IOHEXOL 240 MG/ML 50ML VIAL. PO ONE; -IOHEXOL 300 MG/ML 100ML VIAL. IV ONE
[2019-01-21 14:52] VITALS: BP 140/92
[2019-01-21 14:55] LABS: BILIRUBIN,URINE NEGATIVE (NEG); CLARITY,URINE CLOUDY; COLOR,URINE YELLOW; NITRITE,URINE NEGATIVE (NEG); PROTEIN,URINE NEGATIVE (NEG-TRACE); UROBILINOGEN,URINE 0.2 mg/dL (0.2 mg/dL)
[2019-01-21 15:04] LABS: BARBITURATES NEG (NEG); BENZODIAZEPINES NEG (NEG); CANNABINOIDS POS (NEG); COCAINE NEG (NEG); METHADONE NEG (NEG); OPIATES NEG (NEG); PHENCYCLIDINE NEG (NEG)
[2019-01-21 15:07] LABS: AMPHETAMINE/METHAMPHETAMINE NEG (NEG)
[2019-01-21 15:20] LABS: AMORPHOUS SEDIMENT,UR PRESENT /HPF; BACTERIA,URINE 0 /HPF (0-FEW); RBC,URINE RARE /HPF (0-2); SQUAMOUS EPITHELIAL CELL,UR MOD /LPF; WBC,URINE 0 /HPF (0-4)
--- NOTE | 2019-01-21 15:37 | PHYS DOC ---
Past Medical History Past Medical History: Anxiety, Asthma, Depression, High Cholesterol, Kidney Stone, Other Additional Past Medical Histor: Back Pain, DDD, INSOMNIA, PTSD, MULTIPLE PERSONALITY DISORDER Past Surgical History: Tubal ligation, Other Additional Past Surgical Histo: CYSTOSCOPY W STENT PLACEMENT, I&D OF ABSCESS TO BACK, BX WRIST FX Alcohol Use: None Drug Use: None Adult General Chief Complaint Chief Complaint: BACK PAIN - NO INJURY HPI HPI Patient is a 38 year old female with history of depression, anxiety, asthma, kidney stones, chronic low back pain, presents the ED today complaining of 9 out of 10 left low back pain radiating to the left eye that began today after she bent over. Patient denies falling. Denies any trauma. Describes the pain as sharp and constant. Denies any loss of bowel bladder function. Denies any numbness or tingling to bilateral lower extremities. Denies any urgency frequency dysuria. Review of Systems Review of Systems Constitutional: Denies fever or chills [] : Denies dysuria or hematuria [] Musculoskeletal: Reports left low back pain Integument: Denies rash or skin lesions [] Neurologic: Denies headache, focal weakness or sensory changes [] Endocrine: Denies polyuria or polydipsia [] All other systems were reviewed and found to be within normal limits, except as documented in this note. Current Medications Current Medications Current Medications Medications (Trade) Dose Ordered Sig/Mariel Start Time Stop Time Status Last Admin Dose Admin Morphine Sulfate (Morphine Sulfate) 5 mg 1X ONCE 01/21/19 16:45 01/21/19 16:46 DC 01/21/19 16:55 5 MG Allergies Allergies Allergies Coded Allergies Type Severity Reaction Last Updated Verified oxycodone Allergy Intermediate Rash 04/07/17 Yes fentanyl Allergy Mild Nausea and Vomiting 12/17/16 Yes prednisone Adverse Reaction Intermediate 04/30/17 Yes Physical Exam Physical Exam Constitutional: Well developed, well nourished, no acute distress, non-toxic appearance. [] Abdomen: Bowel sounds normal, soft, no tenderness, no masses, no pulsatile masses. [] Skin: Warm, dry, no erythema, no rash. [] Back: Diffuse paraspinal muscle tenderness on palpation of the left lumbar spine, no midline lumbar spine tenderness, no CVA tenderness. [] Extremities: No tenderness, no cyanosis, no clubbing, ROM intact, no edema. [] Neurologic: Alert and oriented X 3, normal motor function, normal sensory function, no focal deficits noted. [] Psychologic: Affect normal, judgement normal, mood normal. [] Current Patient Data Vital Signs Vital Signs Date Time Temp Pulse Resp B/P (MAP) Pulse Ox O2 Delivery O2 Flow Rate FiO2 01/21/19 16:55 18 01/21/19 14:52 96.8 78 140/92 (108) 99 Room Air 96.8 Lab Values Laboratory Tests Test 01/21/19 14:47 Urine Collection Type Unknown Urine Color Yellow Urine Clarity Cloudy Urine pH 7.0 Urine Specific [place] 1.015 Urine Protein Negative mg/dL (NEG-TRACE) Urine Glucose (UA) Negative mg/dL (NEG) Urine Ketones (Stick) Negative mg/dL (NEG) Urine Blood Trace (NEG) Urine Nitrite Negative (NEG) Urine Bilirubin Negative (NEG) Urine Urobilinogen Dipstick 0.2 mg/dL (0.2 mg/dL) Urine Leukocyte Esterase Negative (NEG) Urine RBC Rare /HPF (0-2) Urine WBC 0 /HPF (0-4) Urine Squamous Epithelial Cells Mod /LPF Urine Amorphous Sediment Present /HPF Urine Bacteria 0 /HPF (0-FEW) Urine Opiates Screen Neg (NEG) Urine Methadone Screen Neg (NEG) Urine Barbiturates Neg (NEG) Urine Phencyclidine Screen Neg (NEG) Urine Amphetamine/Methamphetamine Neg (NEG) Urine Benzodiazepines Screen Neg (NEG) Urine Cocaine Screen Neg (NEG) Urine Cannabinoids Screen Pos (NEG) Urine Ethyl Alcohol Neg (NEG) EKG EKG [] Radiology/Procedures Radiology/Procedures [] Course & Med Decision Making Course & Med Decision Making Pertinent Labs and Imaging studies reviewed. (See chart for details) This is a 38-year-old female patient presented to the ED today complaining of left low back pain radiating to the left eye, symptoms began today after bending over. Lumbar spine x-rays interpreted by are negative for any acute findings D/c to home, f/u with PCP in 1 week. Dragon Disclaimer Dragon Disclaimer This electronic medical record was generated, in whole or in part, using a voice recognition dictation system. Departure Departure Impression: Primary Impression: Lumbosacral strain Disposition: HOME, SELF-CARE Condition: STABLE Referrals: PHU GONZALES APRN (PCP) Follow-up in 1-2 weeks Patient Instructions: Lumbosacral Strain Additional Instructions: You were evaluated in the emergency room for back pain, your lumbar spine x-rays are negative for any acute findings. Please follow-up with your own doctor. You can use heat or ice to your back for comfort. Scripts Diclofenac Sodium (DICLOFENAC SODIUM) 50 Mg Tablet.dr 1 TAB PO BID, #10 TAB 0 Refills Prov: ELYSIA MUÑOZ APRN 01/21/19 Cyclobenzaprine Hcl (CYCLOBENZAPRINE HCL) 10 Mg Tablet 1 TAB PO TID, #30 TAB Prov: ELYSIA MUÑOZ APRN 01/21/19 Problem Qualifiers Primary Impression: Lumbosacral strain Encounter type: initial encounter Qualified Codes: S39.012A - Strain of muscle, fascia and tendon of lower back, initial encounter ELYSIA MUÑOZ APRN Jan 21, 2019 15:37
[2019-01-21] MEDS ORDERED: MORPHINE SULFATE 10 MG/ML VIAL. IM ONE (16:45)
[2019-01-21] MEDS ORDERED: CYCL10TA2 PO (17:36)
[2019-01-21] MEDS ORDERED: DICL50TA4 PO (17:36)
[2019-01-21] MEDS ORDERED: diazePAM 5 MG TABLET PO ONE (17:45)
--- NOTE | 2019-01-22 13:58 | RAD ---
Examination: 2 views of the lumbar spine HISTORY: History of pain COMPARISON: None available FINDINGS: The lumbar vertebral body heights are maintained. No evidence of listhesis. The facets are well aligned. Mild intervertebral disc height loss identified in the lumbar spine. IMPRESSION: Mild degenerative changes lumbar spine. Electronically signed by: Ayo Trammell MD (01/22/2019 1:55 PM) [id number]
== END 2019-01-21 17:45 | disposition home or self-care (01) ==
LOC: ER 14:22
DX: S39.012A Strain of muscle, fascia and tendon of lower back, initial encounter (principal); E78.00 Pure hypercholesterolemia, unspecified; J45.909 Unspecified asthma, uncomplicated; G89.29 Other chronic pain; Z87.442 Personal history of urinary calculi; Z98.51 Tubal ligation status; Z88.4 Allergy status to anesthetic agent; Z88.5 Allergy status to narcotic agent; X50.9XXA Other and unspecified overexertion or strenuous movements or postures, initial encounter; Y93.89 Activity, other specified; Y92.89 Other specified places as the place of occurrence of the external cause; Y99.8 Other external cause status
CPT/HCPCS: 72100; 80307; 81001; 96372; 99285; J2270

== ENCOUNTER → 2019-03-19 | Outpatient (CLI) | payer OTHER ==
[~2019-03-19] MED LIST changes: +CYCL10TA2 PO; +DICL50TA4 PO
--- NOTE | 2019-03-19 16:22 | KCIC ---
Examination: 2 views of the left hip with frontal view of the pelvis and 3 views of the right knee HISTORY: History of pain COMPARISON: None available. FINDINGS: The bilateral femoral heads within the acetabula. There is no acute fracture or dislocation identified. Alignment of the knee joint grossly appears unremarkable. There is no acute fracture-dislocation. IMPRESSION: No acute osseous findings. Electronically signed by: Ayo Trammell MD (03/19/2019 4:19 PM) [id number]
== END | disposition home or self-care (01) ==
LOC: KCIC 15:01
PROVIDERS: ATTEND Family Medicine
DX: M25.561 Pain in right knee (principal); M25.552 Pain in left hip; M54.5 Low back pain; G89.29 Other chronic pain
CPT/HCPCS: 73502; 73562

== ENCOUNTER 2019-05-06 18:05 | Emergency (ER) | payer OTHER ==
[~2019-05-06] VITALS: Ht 157.5 cm; Wt 72.6 kg
[2019-05-06 18:18] VITALS: BP 166/97
--- NOTE | 2019-05-06 18:22 | PHYS DOC ---
Past Medical History Past Medical History: Anxiety, Asthma, Depression, High Cholesterol, Kidney Stone, Other Additional Past Medical Histor: Back Pain, DDD, INSOMNIA, PTSD, MULTIPLE PERSONALITY DISORDER (ELYSIA MUÑOZ APRN) Past Surgical History: Tubal ligation, Other Additional Past Surgical Histo: CYSTOSCOPY W STENT PLACEMENT, I&D OF ABSCESS TO BACK, BX WRIST FX (ELYSIA MUÑOZ APRN) Alcohol Use: None Drug Use: None (ELYSIA MUÑOZ APRN) Adult General Chief Complaint Chief Complaint: Congestion HPI HPI Patient is a 38 year old female with history of asthma, high cholesterol, depression, anxiety, who presents to the ED today complaining of a productive cough, nasal congestion, sneezing, watery eyes, nausea symptoms began 2 days ago. Patient denies any fever. Patient states she thinks it is her allergies though she states the symptoms are severe than allergies. She states her sister had similar symptoms and was diagnosed with a sinus infection. Off note the was in the Ed two days ago with similar symptoms after being seen at [facility] a few days earlier (ELYSIA MUÑOZ APRN) Review of Systems Review of Systems Constitutional: Denies fever or chills [] Eyes: Reports watery eyes. Denies change in visual acuity, redness, or eye pain [] HENT: Reports multiple congestion, significant, sore throat [] Respiratory: Reports cough, denies shortness of breath [] Cardiovascular: No additional information not addressed in HPI [] GI: Denies abdominal pain, nausea, vomiting, bloody stools or diarrhea [] : Denies dysuria or hematuria [] Musculoskeletal: Denies back pain or joint pain [] Integument: Denies rash or skin lesions [] Neurologic: Denies headache, focal weakness or sensory changes [] All other systems were reviewed and found to be within normal limits, except as documented in this note. (ELYSIA MUÑOZ APRN) Current Medications Current Medications Current Medications Medications (Trade) Dose Ordered Sig/Mariel Start Time Stop Time Status Last Admin Dose Admin Cetirizine HCl (ZyrTEC) 10 mg 1X STAT 05/06/19 18:55 05/06/19 19:01 DC 05/06/19 19:17 10 MG Dexamethasone Sodium Phosphate (Decadron) 10 mg 1X ONCE 05/06/19 19:15 05/06/19 19:16 DC 05/06/19 19:17 10 MG Ketotifen Fumarate (Zaditor) 1 drop 1X ONCE 05/06/19 19:30 05/06/19 19:31 DC 05/06/19 19:17 1 DROP Ondansetron HCl (Zofran Odt) 4 mg 1X ONCE 05/06/19 19:30 05/06/19 19:31 DC 05/06/19 19:17 4 MG (MUKUL SELF DO) Allergies Allergies Allergies Coded Allergies Type Severity Reaction Last Updated Verified oxycodone Allergy Intermediate Rash 04/07/17 Yes fentanyl Allergy Mild Nausea and Vomiting 12/17/16 Yes prednisone Adverse Reaction Intermediate 04/30/17 Yes (MUKUL SELF DO) Physical Exam Physical Exam Constitutional: Well developed, well nourished, no acute distress, non-toxic appearance. [] HENT: Normocephalic, atraumatic, bilateral external ears normal, oropharynx moist, no oral exudates, nose normal. [] Eyes: PERRLA, EOMI, conjunctiva normal, no discharge. [] Neck: Normal range of motion, no tenderness, supple, no stridor. [] Cardiovascular:Heart rate regular rhythm, no murmur [] Lungs & Thorax: Bilateral breath sounds clear to auscultation [] Abdomen: Bowel sounds normal, soft, no tenderness, no masses, no pulsatile masses. [] Skin: Warm, dry, no erythema, no rash. [] Back: No tenderness, no CVA tenderness. [] Extremities: No tenderness, no cyanosis, no clubbing, ROM intact, no edema. [] Neurologic: Alert and oriented X 3, normal motor function, normal sensory function, no focal deficits noted. [] Psychologic: Affect normal, judgement normal, mood normal. [] (ELYSIA MUÑOZ APRN) Current Patient Data Vital Signs Vital Signs Date Time Temp Pulse Resp B/P (MAP) Pulse Ox O2 Delivery O2 Flow Rate FiO2 05/06/19 18:18 98.3 83 18 166/97 (120) 100 Room Air 98.3 (MUKUL SELF DO) EKG EKG [] (ELYSIA MUÑOZ APRN) Radiology/Procedures Radiology/Procedures [] (ELYSIA MUÑOZ APRN) Course & Med Decision Making Course & Med Decision Making Pertinent Labs and Imaging studies reviewed. (See chart for details) This is a 38-year-old female patient well known to this ED presenting today with cough, congestion watery eyes, nausea, symptoms began 2 days ago. Of note patient's was in the ED 3 days ago for the same complaint after being seen in a different ED 2 days earlier. Patient's sister was also seen for the same complaint by her report. Chest x-ray interpreted by radiologist is negative for any acute findings. Patient's symptoms are more consistent with allergic rhinitis as well as an upper respiratory infection symptoms not bacterial infection. I offered her Decadron IM in the ED, she states she is allergic to prednisone PO it makes her manic, but she can do liquid prednisone per her statement. She was given Decadron, and Zaditor in the ED as well as Zofran. Upon discharge I discussed with the patient some of the remedies for her symptoms, she states she already has an inhaler at home she states, she has gqhy-[id number] remedies including Flonase, Zyrtec as well as phcn-jdg-[id number] decongestants. I requested she uses the medications she has and follows up with a primary care doctor as well as an allergy clinic of her choice. I also requested she gets the Zaditor eyedrops from the ED, she resisted the idea at first stating she doesn't want to eyedrops. (ELYSIA MUÑOZ APRN) Dragon Disclaimer Dragon Disclaimer This electronic medical record was generated, in whole or in part, using a voice recognition dictation system. (ELYSIA MUÑOZ APRN) Departure Departure Impression: Primary Impression: Upper respiratory infection Additional Impressions: Seasonal allergies Allergic conjunctivitis Cough Disposition: 01 HOME, SELF-CARE Condition: STABLE Referrals: PHU GONZALES APRN (PCP) Follow-up with your doctor in the course of this week Patient Instructions: Allergic Conjunctivitis, Bljz-vl-Viki, Allergic Rhinitis, Cough, Adult, Myih-lb-Vzep, Upper Respiratory Infection, Adult, Yjwo-[id number] Additional Instructions: You were evaluated in the emergency room, you have a negative chest x-ray. We highly recommend you follow-up with your primary care doctor or an allergy clinic of your choice. Continue using ykql-[id number] allergy medicine specifically Flonase, Zyrtec, and Zaditor we gave you in the emergency room. You can use the Zaditor twice a day. Attending Signature Attending Signature I have reviewed the PA/LINE INSTALLER TROLLEY's note and plan of care. I was available for consultation as needed during the patient's visit in the emergency department. I agree with the clinical impression, plan, and disposition. (MUKUL SELF DO) Problem Qualifiers Primary Impression: Upper respiratory infection URI type: unspecified URI Qualified Codes: J06.9 - Acute upper respiratory infection, unspecified Additional Impressions: Allergic conjunctivitis Laterality: bilateral Qualified Codes: H10.13 - Acute atopic conjunctivitis, bilateral NHIVIETELYSIA TOOL LATHE OPERATOR May 06, 2019 18:22 MUKUL SELF DO May 06, 2019 22:25
--- NOTE | 2019-05-06 18:41 | RAD ---
Two-view chest dated 05/06/2019. Comparison made to 04/29/2017. Clinical data indication: Cough. FINDINGS: 2 views of chest show normal heart and mediastinal contours. Lungs are clear. No consolidation or pleural effusion. No pneumothorax. IMPRESSION: No acute radiographic abnormality. Electronically signed by: Isai Escobar MD (05/06/2019 6:38 PM) [id number]
[2019-05-06] MEDS ORDERED: CETIRIZINE HCL 10 MG TABLET. PO STA (18:55)
[2019-05-06] MEDS ORDERED: DEXAMETHASONE SOD PHOS 20 MG/5 ML VIAL. IM ONE (19:15)
[2019-05-06] MEDS ORDERED: KETOTIFEN FUMARATE 0.025% OPHTH SOLUTION BOTTLE. OU ONE (19:30)
[2019-05-06] MEDS ORDERED: ONDANSETRON ODT 4 MG TAB.RAPDIS. PO ONE (19:30)
== END 2019-05-06 19:34 | disposition home or self-care (01) ==
LOC: ER 18:05
DX: J45.909 Unspecified asthma, uncomplicated (principal); J06.9 Acute upper respiratory infection, unspecified; H10.13 Acute atopic conjunctivitis, bilateral; E78.00 Pure hypercholesterolemia, unspecified; Z88.4 Allergy status to anesthetic agent; Z88.5 Allergy status to narcotic agent
CPT/HCPCS: 71046; 99284; J1100; Q0162

== ENCOUNTER 2019-07-31 13:04 | Emergency (ER) | payer OTHER ==
[~2019-07-31] VITALS: Ht 157.5 cm; Wt 83.0 kg
[2019-07-31] MEDS ORDERED: ASPIRIN CHEWABLE 81 MG TABLET. PO ONE (13:30)
--- NOTE | 2019-07-31 13:36 | PHYS DOC ---
Past Medical History Past Medical History: Anxiety, Asthma, Depression, High Cholesterol, Kidney Stone, Other Additional Past Medical Histor: Back Pain, DDD, INSOMNIA, PTSD, MULTIPLE PERSONALITY DISORDER Past Surgical History: Hysterectomy, Tubal ligation, Other Additional Past Surgical Histo: CYSTOSCOPY W STENT PLACEMENT, I&D OF ABSCESS TO BACK, BX WRIST FX Smoking: Cigarettes Additional Information: 1/2 PACK/DAY Alcohol Use: None Drug Use: None Adult General Chief Complaint Chief Complaint: CHEST PAIN HPI HPI Patient is a 39-year-old female who presents to the emergency department for evaluation. She states the past few days, she has been having some anterior chest pain which has been described as sharp, although became more of a pressure today. The pain is worsened by deep breathing as well as palpation of her anterior chest. She reports some shortness of breath, but denies any exertional chest pain, nausea, vomiting, or diaphoresis. The pain radiates across her chest, but not to her back or left arm. She does have a family history of coronary artery disease, but no history of premature onset coronary artery di sease. She has not had any fevers or chills, or cough. There are no alleviating or exacerbating factors to her symptoms otherwise. Assuming a negative troponin, the patient's HEART score would be at 2. Review of Systems Review of Systems Constitutional: Denies fever or chills [] Eyes: Denies change in visual acuity, redness, or eye pain [] HENT: Denies nasal congestion or sore throat [] Respiratory: Denies cough. [] Cardiovascular: No additional information not addressed in HPI [] GI: Denies abdominal pain, nausea, vomiting, bloody stools or diarrhea [] : Denies dysuria or hematuria [] Musculoskeletal: Denies back pain or joint pain [] Integument: Denies rash or skin lesions [] Neurologic: Denies headache, focal weakness or sensory changes [] Endocrine: Denies polyuria or polydipsia [] All other systems were reviewed and found to be within normal limits, except as documented in this note. Current Medications Current Medications Current Medications Medications (Trade) Dose Ordered Sig/Mariel Start Time Stop Time Status Last Admin Dose Admin Aspirin (Children'S Aspirin) 324 mg 1X ONCE 07/31/19 13:30 07/31/19 13:34 DC 07/31/19 13:38 324 MG Allergies Allergies Allergies Coded Allergies Type Severity Reaction Last Updated Verified oxycodone Allergy Intermediate Rash 04/07/17 Yes fentanyl Allergy Mild Nausea and Vomiting 12/17/16 Yes prednisone Adverse Reaction Intermediate 04/30/17 Yes Physical Exam Physical Exam PHYSICAL EXAM: CONSTITUTIONAL: Well developed, well nourished HEAD: normocephalic, atraumatic EENT: PERRL, EOMI. Conjunctivae normal color, sclerae non-icteric; moist mucous membranes. NECK: Supple, non-tender; no meningismus. LUNGS: Lungs CTA, breathing even and unlabored. Normal air movement. HEART: Regular rate and rhythm, no murmur CHEST: No deformity; palpation of the anterior chest wall reproduces the patient's pain. ABDOMEN: The abdomen is soft, and non-tender, no masses or bruits. EXTREM: Normal ROM; no deformity, no calf tenderness. Normal pulses palpable in all extremities. There is no pedal edema. SKIN: No rash; no diaphoresis NEURO: Alert; normal speech and cognition; CN's grossly intact; strength grossly intact without focal deficit. BACK: No CVA TTP. PSYCHIATRIC: Mildly anxious affect. Current Patient Data Vital Signs Vital Signs Date Time Temp Pulse Resp B/P (MAP) Pulse Ox O2 Delivery O2 Flow Rate FiO2 07/31/19 13:11 97.7 95 20 145/96 (112) 98 Room Air 97.7 Lab Values Laboratory Tests Test 07/31/19 13:41 White Blood Count 8.1 x10^3/uL (4.0-11.0) Red Blood Count 4.89 x10^6/uL (3.50-5.40) Hemoglobin 15.3 g/dL (12.0-15.5) Hematocrit 44.7 % (36.0-47.0) Mean Corpuscular Volume 92 fL (79-100) Mean Corpuscular Hemoglobin 31 pg (25-35) Mean Corpuscular Hemoglobin Concent 34 g/dL (31-37) Red Cell Distribution Width 13.3 % (11.5-14.5) Platelet Count 311 x10^3/uL (140-400) Neutrophils (%) (Auto) 43 % (31-73) Lymphocytes (%) (Auto) 47 % (24-48) Monocytes (%) (Auto) 8 % (0-9) Eosinophils (%) (Auto) 2 % (0-3) Basophils (%) (Auto) 1 % (0-3) Neutrophils # (Auto) 3.4 x10^3/uL (1.8-7.7) Lymphocytes # (Auto) 3.7 x10^3/uL (1.0-4.8) Monocytes # (Auto) 0.6 x10^3/uL (0.0-1.1) Eosinophils # (Auto) 0.1 x10^3/uL (0.0-0.7) Basophils # (Auto) 0.1 x10^3/uL (0.0-0.2) D-Dimer (Lydia) 0.35 ug/mlFEU (0.00-0.50) Sodium Level 141 mmol/L (136-145) Potassium Level 3.8 mmol/L (3.5-5.1) Chloride Level 103 mmol/L (98-107) Carbon Dioxide Level 29 mmol/L (21-32) Anion Gap 9 (6-14) Blood Urea Nitrogen 14 mg/dL (7-20) Creatinine 0.8 mg/dL (0.6-1.0) Estimated GFR (Cockcroft-Gault) 79.4 BUN/Creatinine Ratio 18 (6-20) Glucose Level 101 mg/dL (70-99) H Calcium Level 9.3 mg/dL (8.5-10.1) Total Bilirubin 0.2 mg/dL (0.2-1.0) Aspartate Amino Transferase (AST) 22 U/L (15-37) Alanine Aminotransferase (ALT) 44 U/L (14-59) Alkaline Phosphatase 104 U/L (46-116) Troponin I Quantitative < 0.017 ng/mL (0.000-0.055) II-Oyg-M-Type Natriuretic Peptide 12 pg/mL (0-124) Total Protein 7.7 g/dL (6.4-8.2) Albumin 3.7 g/dL (3.4-5.0) Albumin/Globulin Ratio 0.9 (1.0-1.7) L Lipase 142 U/L (73-393) Laboratory Tests 07/31/19 13:41 Laboratory Tests 07/31/19 13:41 EKG EKG Normal sinus rhythm at a rate of 96 bpm, normal axis, normal intervals. There are no acute ischemic ST/T changes.[] EKG is not significantly changed compared to patient's prior EKG. Radiology/Procedures Radiology/Procedures PROCEDURE: CHEST PA & LATERAL CHEST PA LATERAL History: Chest pain Comparison: May 06, 2019 Findings: No consolidation or pleural effusion. Normal heart size. No pneumothorax. Surgical clips right upper quadrant. Left upper lobe calcified granuloma, unchanged. Impression: 1. No acute cardiopulmonary process.[] Course & Med Decision Making Course & Med Decision Making Pertinent Labs and Imaging studies reviewed. (See chart for details) []4:10 PM: The patient's condition remains stable. Repeat EKG, done at 3:45 PM, shows no acute abnormality, normal sinus rhythm at a rate of 70 beats for minute, normal axis, normal intervals, J-point elevation inferiorly without acute ischemic ST/T changes. I discussed test results with the patient. She risk stratifies low, and does not warrant hospitalization. She states that she has been under a lot of stress and anxiety and suspects that this is related to her pain. I discussed importance of close outpatient follow-up, and return precautions. Dragon Disclaimer Dragon Disclaimer This electronic medical record was generated, in whole or in part, using a voice recognition dictation system. Departure Departure Impression: Primary Impression: Chest wall pain Disposition: 01 HOME, SELF-CARE Condition: STABLE Referrals: PHU GONZALES APRN (PCP) Patient Instructions: Anxiety and Panic Attacks, Chest Pain (Nonspecific), Chest Wall Pain, Costochondritis Additional Instructions: Ibuprofen 400-600 mg every 6 hours may help improve your symptoms. Applying a heating pad to the affected area may help improve your symptoms. JOSEMANUEL NARANJO MD Jul 31, 2019 13:36
[2019-07-31 13:51] LABS: BASO # 0.1 x10^3/uL (0.0-0.2); BASO % 1 % (0-3); EOS # 0.1 x10^3/uL (0.0-0.7); EOS % 2 % (0-3); HEMATOCRIT 44.7 % (36.0-47.0); HEMOGLOBIN 15.3 g/dL (12.0-15.5); LYMPH # 3.7 x10^3/uL (1.0-4.8); LYMPH % 47 % (24-48); MEAN CORPUSCULAR HEMOGLOBIN 31 pg (25-35); MEAN CORPUSCULAR HGB CONC 34 g/dL (31-37); MEAN CORPUSCULAR VOLUME 92 fL (79-100); MONO # 0.6 x10^3/uL (0.0-1.1); MONO % 8 % (0-9); NEUT # 3.4 x10^3/uL (1.8-7.7); NEUT % 43 % (31-73); PLATELET COUNT 311 x10^3/uL (140-400); RED BLOOD COUNT 4.89 x10^6/uL (3.50-5.40); RED CELL DISTRIBUTION WIDTH 13.3 % (11.5-14.5); WHITE BLOOD COUNT 8.1 x10^3/uL (4.0-11.0)
[2019-07-31 14:06] LABS: CALCIUM 9.3 mg/dL (8.5-10.1); CREATININE 0.8 mg/dL (0.6-1.0); GFR 79.4; POTASSIUM 3.8 mmol/L (3.5-5.1)
--- NOTE | 2019-07-31 14:08 | EKG ---
[facility] [address] [place] [address] Test Date: 2019-07-31 Test Time: 13:15:47 Pat Name: NAI SEALS Department: Room: Gender: F Delivery Driver/Supervisor: : 1980 Requested By: JOSEMANUEL NARANJO Order Number: [id number] Reading MD: Measurements Intervals [place] Rate: 96 P: 20 MA: 124 QRS: 31 QRSD: 76 T: 42 QT: 318 QTc: 403 Interpretive Statements SINUS RHYTHM QRS(T) CONTOUR ABNORMALITY CONSIDER INFERIOR MYOCARDIAL DAMAGE POSSIBLY ABNORMAL ECG RI6.01 No previous ECG available for comparison
[2019-07-31 14:13] LABS: ALBUMIN 3.7 g/dL (3.4-5.0); ALBUMIN/GLOBULIN RATIO 0.9 (1.0-1.7); TOTAL BILIRUBIN 0.2 mg/dL (0.2-1.0); TOTAL PROTEIN 7.7 g/dL (6.4-8.2)
--- NOTE | 2019-07-31 15:08 | RAD ---
CHEST PA LATERAL History: Chest pain Comparison: May 06, 2019 Findings: No consolidation or pleural effusion. Normal heart size. No pneumothorax. Surgical clips right upper quadrant. Left upper lobe calcified granuloma, unchanged. Impression: 1. No acute cardiopulmonary process. Electronically signed by: Kush Valero DO (07/31/2019 3:05 PM) [email or web address]
[2019-07-31 16:00] VITALS: BP 120/60
--- NOTE | 2019-07-31 16:03 | EKG ---
[facility] [address] [place] [address] Test Date: 2019-07-31 Test Time: 15:45:32 Pat Name: NAI SEALS Department: Room: Gender: F Metal Shaping Machine Operator: : 1980 Requested By: JOSEMANUEL NARANJO Order Number: [id number] Reading MD: Measurements Intervals [place] Rate: 78 P: -18 MN: 124 QRS: 39 QRSD: 78 T: 31 QT: 352 QTc: 405 Interpretive Statements SINUS RHYTHM ST & T ABNORMALITY, CONSIDER RECENT INFERIOR MYOCARDIAL OR PERICARDIAL DAMAGE ABNORMAL ECG RI6.01 No previous ECG available for comparison
== END 2019-07-31 16:22 | disposition home or self-care (01) ==
LOC: ER 13:04
DX: R07.89 Other chest pain (principal); R06.02 Shortness of breath; F41.9 Anxiety disorder, unspecified; J45.909 Unspecified asthma, uncomplicated; F32.9 Major depressive disorder, single episode, unspecified; E78.00 Pure hypercholesterolemia, unspecified; F43.10 Post-traumatic stress disorder, unspecified; F17.210 Nicotine dependence, cigarettes, uncomplicated; Z88.4 Allergy status to anesthetic agent; Z88.5 Allergy status to narcotic agent
CPT/HCPCS: 36415; 71046; 80053; 83690; 83880; 84484; 85025; 85379; 93005; 99285-25

== ENCOUNTER → 2019-09-07 | Outpatient (CLI) | payer OTHER ==
--- NOTE | 2019-09-07 12:07 | KCIC ---
LUMBAR SPINE WO CONTRAST History: Lumbar pain. Radiculopathy left leg. Technique: Multiplanar, multi sequential MR imaging was performed of the lumbar spine. Comparison: December 25, 2013 Findings: Normal vertebral body height and alignment. No fracture. Conus terminates at the normal location. No evidence of nerve root clumping. L1-L2: No canal or neuroforaminal narrowing. L2-L3: No canal or neuroforaminal narrowing. L3-L4: Minimal posterior disc bulge. Mild facet arthropathy. No canal or neuroforaminal narrowing. L4-L5: Small posterior disc bulge. Mild facet arthropathy. No canal or neuroforaminal narrowing. L5-S1: Moderate facet arthropathy. No canal or neuroforaminal narrowing. Impression: 1. Mild lower lumbar spondylosis. No significant canal or neuroforaminal narrowing. Electronically signed by: Kush Valero DO (09/07/2019 12:04 PM) [email or web address]
== END | disposition home or self-care (01) ==
LOC: KCIC MRI 09:37
PROVIDERS: ATTEND Nurse Practitioner Family
DX: M47.816 Spondylosis without myelopathy or radiculopathy, lumbar region (principal); M12.88 Other specific arthropathies, not elsewhere classified, other specified site
CPT/HCPCS: 72148

== ENCOUNTER → 2019-12-21 | Outpatient (CLI) | payer OTHER ==
--- NOTE | 2019-12-21 10:23 | PAIN ---
DATE OF SERVICE: 12/21/2019 INITIAL CONSULTATION FOR PAIN CLINIC CHIEF COMPLAINT: Low back and left lower extremity pain. HISTORY OF PRESENT ILLNESS: This is a 39-year-old female who presents with history of pain in the low back for about 5 years, not a result of any specific injury or action that she is aware of, but it has been coming up gradually over time in the low back, left lower extremity, posterior gluteus, posterior thigh, lateral thigh, anterior thigh, medial thigh and posterior calf. The patient reports it is worse with walking, standing, changing positions, especially stooping or bending and then standing up from that position. The patient reports it awakens her from sleep at least 5-6 times a night, does not affect her bowel or bladder control, but does affect her ability to walk with some significant fatigability in the left leg, but not the right. The patient reports no loss of motor function, but significant fatigability. The patient has had physical therapy, which was helpful temporarily, and also has had some trigger point injections in the past and epidural injections, which were helpful many years ago. The patient reports she has tried oxycodone as well as hydrocodone, both of which helped, but is not having this in about 5 years. The patient had nothing recently. The patient rates her disability ranging 0-10, 10 being the worst, is at 9 with family and home responsibilities, social activity, occupation and sexual behavior and self-care, 10 with recreational activities and 5 with life support activities. The patient did have MRI scan of the lumbar spine, which was done 09/07/2019 showing small posterior disk bulge at L4-L5 with no foraminal or neural foraminal narrowing or canal narrowing and some minimal posterior disk bulge at L3-L4 as well. The patient reports no loss of complete function again, but significant fatigability, especially with walking, standing, bending, stooping. She is on leave from her job currently as she has a very physically demanding job at [employer]. PAST MEDICAL HISTORY: Significant for arthritis, dizziness, hypertension, cigarette smoking, obesity. PREVIOUS SURGERIES: Include a left wrist and right wrist ORIF, cholecystectomy, previous hysterectomy. CURRENT MEDICATIONS: Include promethazine 25 mg p.r.n. for nausea. ALLERGIES: THE PATIENT IS ALLERGIC TO FENTANYL PATCHES AND PREDNISONE. FAMILY HISTORY: Significant for no major medical problems or conditions that she is aware of. SOCIAL HISTORY: The patient does not drink alcohol. Smokes about half a pack of cigarettes, has for 20 years, continues to smoke. Does not use any illegal, illicit or recreational drugs. She is , lives with her spouse, has 2 children locally in [place], [place]. Again, works at [employer]. REVIEW OF SYSTEMS: The patient's review of systems is positive for those items mentioned in history of present illness. All systems reviewed and otherwise negative. It is complete, full and well documented on the patient's chart. PHYSICAL EXAMINATION: VITAL SIGNS: The patient's blood pressure 115/84, pulse 83, respirations 18, temperature 97.7 degrees Fahrenheit, height is 5 feet 2 inches, weight is 206 pounds. GENERAL: The patient is awake, alert, oriented, appropriate, very pleasant demeanor. HEENT: Exam shows normocephalic, atraumatic. Extraocular movements are intact and symmetrical. Oral cavity shows mucous membranes moist and pink. Dentition is intact. NECK: Shows anterior throat supple without palpable lymphadenopathy noted. Swallow reflex symmetrical. CHEST: Shows normal on inspection. Breath sounds are clear bilaterally. HEART: Shows S1, S2 clear. No murmurs auscultated. ABDOMEN: Obese, soft, nontender, nondistended. No palpable organomegaly is noted. No rebound or guarding demonstrated. BACK: Shows spine grossly in the midline. Normal appearing thoracic kyphosis, cervical lordotic curvature and lumbar lordotic curvature. Lumbar paraspinous muscle shows symmetrical on inspection, on palpation shows some moderate tenderness diffusely bilaterally going diffusely without significant radiation. The patient does show good rotational motion of lumbar spine, greater than 10 degrees right and left as well as full extension at 10 degrees, full forward flexion 45 degrees without significant pain reported. EXTREMITIES: The patient's lower extremities show deep tendon reflexes 2+ in the patellar, 1+ tendo-calcaneus tendons. Motor exam is approximately 4 on a scale of 5 on the left, 5/5 on the right with dorsiflexion, extension, quadriceps and hamstring flexion. Peripheral pulses are 1+ posterior tibia. No peripheral edema is noted. Lower extremities are warm and dry to touch, equal in color and appearance. Straight leg raise noted to be positive on the left at about 35-40 degrees, leg raise decreased with knee flexion, right side is negative. Gaenslen's and Darrel's maneuvers are negative bilaterally. The patient is able to stand, stand on her toes without significant difficulty, but does have some difficulty with loss of balance with walking, does appear to favor her left lower extremity fairly significantly, again not using any assistive devices to ambulate. SKIN: Shows warm and dry, good turgor. No edema. No sores, rashes or bruising throughout. IMPRESSION: 1. This is a 39-year-old female with about 5-year history of increasing pain, low back, left lower extremity, and mildly better with physical therapy recently. Still doing the exercises and heat applications at home, but with still significant pain and radicular pain in a L4-L5 dermatomal distribution on the left. 2. MRI scan of lumbar spine as noted. 3. Cigarette smoking. 4. Hypertension. 5. Arthritis. PLAN: Options were discussed with the patient including continued conservative therapies, continued physical therapies as well as interventional techniques and she has done well with interventional techniques in the past per her report and she would like to proceed with a lumbar epidural steroid injection. The patient will wait for preauthorization from her insurance provider. Once authorized, we will have her return for a L4-L5 translaminar lumbar epidural steroid injection at that time. MARY HIGHTOWER MD DR: DELL/clint JOB#: [id number] / [id number] PHU Almanza APRN
== END | disposition home or self-care (01) ==
LOC: PNCL 08:37
PROVIDERS: ATTEND Anesthesiology
DX: I10 Essential (primary) hypertension (principal); M19.90 Unspecified osteoarthritis, unspecified site; F17.210 Nicotine dependence, cigarettes, uncomplicated
CPT/HCPCS: G0463

== ENCOUNTER → 2020-04-24 | Outpatient (CLI) | payer OTHER ==
[~2020-04-24] MED LIST changes: +IOHEXOL 180 MG/ML 10 ML VIAL. ONE; +methylPREDNISolone ACETATE 40 MG/ML VIAL. ONE; +methylPREDNISolone ACETATE 80 MG/ML VIAL. ONE
--- NOTE | 2020-04-24 10:31 | PDOC ---
Progress Note - Pain Clinic Date of Service: DOS: DATE: 04/24/20 TIME: 10:26 Diagnosis: Dx: Lumbar radiculopathy with lumbar degenerative disc disease History or Present Illness: HPI: 39-year-old female returns follow-up status post initial evaluation preauthorization for lumbar epidural steroid traction seen on December 21, 2019 patient rescheduled several times and we had a new authorization obtained she is obtained that now would like to proceed with lumbar epidural steroid traction today. Patient reports that she is still has pain the low back left lower extremity posterior gluteus posterior thigh lateral thigh anterior thigh medial thigh and into the calf as well on the left side. Patient reports is a 10 on scale 10 is worst over the past week, 9 on average, 5 at its least, and is a 5 today. Patient reports has been off work for about 3 months from [employer] is doing some housecleaning in the meantime. But this is been increasing her pain as she has had to bend and stoop and lift and climb stairs, etc. patient reports no new motor or sensory deficits no new bowel or bladder consult complaints. Patient scribes her pain is tingling and burning in the back stabbing in the low back aching and sharp shooting in the left lower lower extremity radiating coming more constant worse with walking standing changing positions better with sitting or laying down is waking her from sleep about once or twice at night. Physical Exam: VS: Blood pressure is 131/85 pulse 87 respirations 18 temperature is 90.1 F height is 5 foot 2 inches and weight is 205 pounds PE: PHYSICAL EXAMINATION: GENERAL: The patient is awake, alert, oriented, appropriate, very pleasant demeanor HEENT: Shows normocephalic, atraumatic. Extraocular movements are intact and symmetrical. Oral cavity: Mucous membranes moist and pink. NECK: Shows anterior throat supple without palpable lymphadenopathy noted. Swallow reflex symmetrical. CHEST: Shows normal on inspection. Breath sounds are clear bilaterally. HEART: Shows S1, S2 clear. No murmurs auscultated. ABDOMEN: Soft, nontender, nondistended. No palpable organomegaly is noted. No rebound or guarding demonstrated. BACK: Shows spine grossly in the midline. Normal-appearing cervical lordotic curvature. There is slightly increased thoracic kyphosis, some minor flattening of the lumbar lordotic curvature. Lumbar paraspinous muscles show symmetrical on inspection, on palpation shows some moderate tenderness diffusely throughout the upper, middle and lower distribution of the paraspinous muscles bilaterally, but without specific trigger points, without radiation of pain. The patient has good rotational motion of the lumbar spine, both laterally as well as extension and flexion without significant difficulty. No tenderness over the spinous processes, sacrum or sacroiliac regions. EXTREMITIES: Lower extremities show deep tendon reflexes 2+ in the patellar and tendo calcaneus tendons. Motor exam is 5 on a scale of 5 with right dorsiflexion, extension, quadriceps and hamstring flexion and 4/5 on the left. Peripheral pulses are 1+ posterior tibial. No peripheral edema is noted bilaterally. Lower extremities are warm and dry to touch, equal in color and appearance. SKIN: Shows warm and dry, good turgor. No edema. No sores, rashes or bruising throughout. Procedure: Procedure: Options discussed with the patient. Patient will chart was reviewed as her current medication regimen updated current review of systems updated today as well. We will proceed with a lumbar epidural straight injection today with fluoroscopic guidance. Risks were discussed including but not limited to: Bleeding, infection, possibility of epidural hematoma and subsequent neurological compromise, dural puncture, headaches, spinal cord and/or nerve damage, side effects of steroid medication, and poor results regarding pain control. Patient understands wished to proceed. Patient return to clinic in approximate 2 weeks for follow-up was counseled as to return appointment activity level and side effects to be aware of. Medication Injected: Med Injected: Procedure is lumbar epidural steroid injection under local anesthetic using sterile prep and drape at the L4-5 level using C-arm fluoroscopic guidance in both AP and lateral views medications injected is 120 mg Depo-Medrol + 10 mL preservative-free normal saline and 2 mL contrast- condition at discharge is stable patient tolerated procedure well had no complications. Condition at Discharge: Condition at Discharge: Condition at discharge stable patient tolerated procedure well had no com plications MARY HIGHTOWER MD Apr 24, 2020 10:31
== END | disposition home or self-care (01) ==
LOC: PNCL 09:40
PROVIDERS: ATTEND Anesthesiology
DX: M51.16 Intervertebral disc disorders with radiculopathy, lumbar region (principal); I10 Essential (primary) hypertension; Z87.891 Personal history of nicotine dependence; Z79.899 Other long term (current) drug therapy; Z88.8 Allergy status to other drugs, medicaments and biological substances
CPT/HCPCS: 62323; J1030; J1040; Q9965

== ENCOUNTER → 2020-05-13 | Outpatient (CLI) | payer OTHER ==
[~2020-05-13] MED LIST changes: -IOHEXOL 180 MG/ML 10 ML VIAL. ONE; -methylPREDNISolone ACETATE 40 MG/ML VIAL. ONE; -methylPREDNISolone ACETATE 80 MG/ML VIAL. ONE
--- NOTE | 2020-05-13 10:04 | PDOC ---
Progress Note - Pain Clinic Date of Service: DOS: DATE: 05/13/20 TIME: 10:00 Diagnosis: Dx: Lumbar radiculopathy with lumbar degenerative disc disease History or Present Illness: HPI: 39-year-old female returns follow-up status post lumbar epidural to injection x1. Patient reports no significant improvement after the injection good for a few days but after that the pain returned fairly significantly in the low back left lower extremity posterior lateral thigh lateral anterior thigh anterior medial thigh medial lower leg and into the calf as well patient reports it remains and still painful aching sharp shooting burning cramping stabbing tingling worse with activity bending stooping walking standing sitting for prolonged periods greater than 20 to 30 minutes better with sitting or laying down generally does not awaken her from sleep at night but sitting for prolonged periods once again does cause the pain to increase. Patient reports no new motor or sensory deficits no new bowel or bladder incontinence patient reports her pain is a 9 on scale 10 is worse over the past week 9 on average 8 at its least is a 9 today patient reports has been trying to lose some weight and encouraged her to do this as well as this will probably help her low back pain. Patient reports no other concerns Physical Exam: VS: Blood pressure is 136/92 pulse 73 respirations 18 temperature 98.2 F height is 5 feet 2 inches weight is 203 pounds PE: PHYSICAL EXAMINATION: GENERAL: The patient is awake, alert, oriented, appropriate, very pleasant demeanor HEENT: Shows normocephalic, atraumatic. Extraocular movements are intact and symmetrical. Oral cavity: Mucous membranes moist and pink. NECK: Shows anterior throat supple without palpable lymphadenopathy noted. Swallow reflex symmetrical. CHEST: Shows normal on inspection. Breath sounds are clear bilaterally, no rales rhonchi or wheezes auscultated. HEART: Shows S1, S2 clear. No murmurs auscultated. ABDOMEN: Soft, nontender, nondistended, obese. No palpable organomegaly is noted. No rebound or guarding demonstrated. BACK: Shows spine grossly in the midline. Normal-appearing cervical lordotic curvature. There is slightly increased thoracic kyphosis, some minor flattening of the lumbar lordotic curvature. Lumbar paraspinous muscles show symmetrical on inspection, on palpation shows some moderate tenderness diffusely throughout the upper, middle and lower distribution of the paraspinous muscles without specific trigger points, without radiation of pain. The patient has good rotational motion of the lumbar spine, both laterally as well as extension and flexion without significant difficulty. No tenderness over the spinous processes, sacrum or sacroiliac regions. EXTREMITIES: Lower extremities show deep tendon reflexes 2+ in the patellar and tendo calcaneus tendons. Motor exam is 5 on a scale of 5 with right dorsiflexion, extension, quadriceps and hamstring flexion and 4/5 on the left. Peripheral pulses are 1+ posterior tibial. No peripheral edema is noted bilaterally. Lower extremities are warm and dry to touch, equal in color and appearance. SKIN: Shows warm and dry, good turgor. No edema. No sores, rashes or bruising throughout. Procedure: Procedure: Options were discussed with the patient. Patient's old chart was reviewed as her current medication regimen updated current review of systems updated today as well. Patient would like to wait on any further injections at this time and continue with stretching strengthening weight loss activities. Discussed importance of maintaining good diet as well as exercise routine patient reports that she gets plenty of exercise when she is working and is watching her diet to the best of her abilities. I encouraged her to continue with the weight loss strategies and the exercise she is also wearing a back brace while she is at work but not when she is not working. We discussed potential of a second lumbar epidural steroid injection however patient is not interested in this at this time. Patient this time will follow-up on a as needed basis, per her desire. Medication Injected: Med Injected: None Condition at Discharge: Condition at Discharge: Condition at discharge is stable. MARY HIGHTOWER MD May 13, 2020 10:04
== END | disposition home or self-care (01) ==
LOC: PNCL 09:31
PROVIDERS: ATTEND Anesthesiology
DX: M51.16 Intervertebral disc disorders with radiculopathy, lumbar region (principal); I10 Essential (primary) hypertension; E78.00 Pure hypercholesterolemia, unspecified; F17.210 Nicotine dependence, cigarettes, uncomplicated; Z72.89 Other problems related to lifestyle; Z79.899 Other long term (current) drug therapy
CPT/HCPCS: 99212; G0463

== ENCOUNTER 2020-08-03 18:43 | Emergency (ER) | payer OTHER ==
[~2020-08-03] VITALS: Ht 157.5 cm; Wt 86.0 kg
[2020-08-03 19:05] VITALS: BP 136/91
[2020-08-03] MEDS ORDERED: NAPROXEN 500 MG TABLET PO STA (19:11)
[2020-08-03] MEDS ORDERED: HYDROcodone/APAP 5/325MG 1 TAB TABLET PO ONE (19:15)
[2020-08-03] MEDS ORDERED: diphenhydrAMINE HCL 25 MG CAPSULE PO ONE (19:15)
--- NOTE | 2020-08-03 20:04 | PHYS DOC ---
Past Medical History Past Medical History: Anxiety, Asthma, Depression, High Cholesterol, Kidney Stone, Other Additional Past Medical Histor: Back Pain, DDD, INSOMNIA, PTSD, MULTIPLE PERSONALITY DISORDER Past Surgical History: Hysterectomy, Tubal ligation, Other Additional Past Surgical Histo: CYSTOSCOPY W STENT PLACEMENT, I&D OF ABSCESS TO BACK, BX WRIST FX Smoking Status: Current Every Day Smoker Alcohol Use: None Drug Use: None General Adult EDM: Chief Complaint: FOOT INJURY PAIN HPI: HPI: Patient is a 40 year old female who presents to the ED today complaining of 8 out of 10 left lateral foot pain, symptoms began 10 days ago after she fell while lifting some boxes. Patient denies any loss of consciousness. States the pain is worse on weightbearing as well as touching the left lateral foot. Denies anything specifically relieving the pain. Describes the pain as throbbing and intermittent. Review of Systems: Review of Systems: Constitutional: Denies fever or chills. [] Musculoskeletal: Reports left lateral foot pain. Integument: Denies rash. [] Neurologic: Denies headache, focal weakness or sensory changes. [] Psychiatric: Denies depression or anxiety. [] Heart Score: Risk Factors: Risk Factors: DM, Current or recent (<one month) smoker, HTN, HLP, family history of CAD, obesity. Risk Scores: Score 0 - 3: 2.5% MACE over next 6 weeks - Discharge Home Score 4 - 6: 20.3% MACE over next 6 weeks - Admit for Clinical Observation Score 7 - 10: 72.7% MACE over next 6 weeks - Early Invasive Strategies Current Medications: Current Medications Medications (Trade) Dose Ordered Sig/Mariel Start Time Stop Time Status Last Admin Dose Admin Acetaminophen/ Hydrocodone Bitart (Lortab 5/325) 2 tab 1X ONCE 08/03/20 19:15 08/03/20 19:21 DC 08/03/20 19:34 2 TAB Diphenhydramine HCl (Benadryl) 25 mg 1X ONCE 08/03/20 19:15 08/03/20 19:21 DC 08/03/20 19:33 25 MG Naproxen (Naprosyn) 500 mg 1X STAT 08/03/20 19:11 08/03/20 19:21 DC 08/03/20 19:33 500 MG Allergies: Allergies: Allergies Coded Allergies Type Severity Reaction Last Updated Verified oxycodone Allergy Intermediate Rash 04/07/17 Yes fentanyl Allergy Mild Nausea and Vomiting 12/17/16 Yes prednisone Adverse Reaction Intermediate 04/30/17 Yes Physical Exam: PE: Constitutional: Well developed, well nourished, no acute distress, non-toxic appearance. [] Skin: Warm, dry, no erythema, no rash. [] Back: No tenderness, no CVA tenderness. [] Extremities: Left foot with no obvious deformity. Left lateral foot with bruising on small amount of soft tissue swelling. No navicular bone tenderness, no tenderness on the base of the fifth metatarsal. Full range of motion to the left foot and toes. +2 left pedal pulse. Cap refill less than 2 seconds to left toes. Neurologic: Alert and oriented X 3, normal motor function, normal sensory function, no focal deficits noted. [] Psychologic: Affect normal, judgement normal, mood normal. [] Current Patient Data: Vital Signs: Vital Signs Date Time Temp Pulse Resp B/P (MAP) Pulse Ox O2 Delivery O2 Flow Rate FiO2 08/03/20 19:05 98.1 97 18 136/91 (106) 99 Room Air 98.1 EKG: EKG: [] Radiology/Procedures: Radiology/Procedures: []PROCEDURE: FOOT LEFT 3V Exam: Left foot 3 views INDICATION: Fall, pain TECHNIQUE: Frontal, lateral and oblique views of the left foot Comparisons: None FINDINGS: Bone mineralization is normal. No acute or healed fractures. Soft tissues are unremarkable. Joint spaces are well-maintained. IMPRESSION: No acute osseous abnormality. Electronically signed by: Roxann Dang MD (08/03/2020 8:08 PM) [facility] DICTATED and SIGNED BY: ROXANN DANG MD DATE: 08/03/[id number] 0 Course & Med Decision Making: Course & Med Decision Making Pertinent Labs and Imaging studies reviewed. (See chart for details) This is a 40-year-old female patient presenting to the ED today with left foot pain that began 10 days ago after falling. Left foot x-rays interpreted by radiologist were negative for any acute findings. Ortho shoe provided in the ED by the RN, neurovascular exam is negative. Discharge to home. Follow-up with orthopedic doctor in 1 to 2 weeks Tess Disclaimer: Tess Disclaimer: This electronic medical record was generated, in whole or in part, using a voice recognition dictation system. Departure Departure Impression: Primary Impression: Sprain of left foot Qualified Codes: S93.602A - Unspecified sprain of left foot, initial e ncounter Disposition: 01 DC HOME SELF CARE/HOMELESS Condition: STABLE Referrals: PHU GONZALES APRN (PCP) KIMBERLY MCKINNEY MD follow up in one week Patient Instructions: Foot Sprain-Brief Additional Instructions: You were seen for left foot pain, left foot x-rays are negative for any acute findings. Follow-up with the provided orthopedic doctor in 1 week. Continue to ice and elevate the extremity. Scripts Hydrocodone/Apap 5-325 (NORCO 5-325 TABLET) 1 Each Tablet 1 TAB PO Q6-8HRS PRN for PAIN, #10 TAB Prov: ELYSIA MUÑOZ APRN 08/03/20 ELYSIA MUÑOZ APRN Aug 03, 2020 20:04
--- NOTE | 2020-08-03 20:10 | RAD ---
Exam: Left foot 3 views INDICATION: Fall, pain TECHNIQUE: Frontal, lateral and oblique views of the left foot Comparisons: None FINDINGS: Bone mineralization is normal. No acute or healed fractures. Soft tissues are unremarkable. Joint [facility] are well-maintained. IMPRESSION: No acute osseous abnormality. Electronically signed by: Roxann Webber MD (08/03/2020 8:08 PM) JEANIE
[2020-08-03] MEDS ORDERED: HYDR-3164 PO (20:33)
== END 2020-08-03 21:10 | disposition home or self-care (01) ==
LOC: ER 18:43
DX: S93.692A Other sprain of left foot, initial encounter (principal); R60.0 Localized edema; F41.9 Anxiety disorder, unspecified; F32.9 Major depressive disorder, single episode, unspecified; E78.00 Pure hypercholesterolemia, unspecified; J45.909 Unspecified asthma, uncomplicated; F17.200 Nicotine dependence, unspecified, uncomplicated; F51.04 Psychophysiologic insomnia; Z90.710 Acquired absence of both cervix and uterus; Z98.51 Tubal ligation status; Z88.5 Allergy status to narcotic agent; Z88.8 Allergy status to other drugs, medicaments and biological substances; W18.39XA Other fall on same level, initial encounter; Y93.89 Activity, other specified; Y92.89 Other specified places as the place of occurrence of the external cause; Y99.8 Other external cause status
CPT/HCPCS: 73630; 99284; Q0163

== ENCOUNTER 2021-02-15 11:35 | Emergency (ER) | payer OTHER ==
[~2021-02-15] VITALS: Ht 157.5 cm; Wt 81.0 kg
[2021-02-15 12:02] LABS: BILIRUBIN,URINE NEGATIVE (NEG); CLARITY,URINE CLEAR; COLOR,URINE YELLOW; NITRITE,URINE NEGATIVE (NEG); PROTEIN,URINE NEGATIVE (NEG-TRACE)
[2021-02-15 12:13] LABS: AMORPHOUS SEDIMENT,UR PRESENT /HPF; BACTERIA,URINE 0 /HPF (0-FEW)
[2021-02-15] MEDS ORDERED: IV NORMAL SALINE 1000ML BAG 1,000 ML IV SCH (12:15)
[2021-02-15] MEDS ORDERED: fentaNYL PF VIAL 100 MCG/2 ML VIAL IVP ONE (12:15)
[2021-02-15] MEDS ORDERED: KETOROLAC 30 MG/ML VIAL. IVP ONE (12:15)
[2021-02-15] MEDS ORDERED: ONDANSETRON PF 4 MG/2 ML VIAL. IVP ONE (12:15)
[2021-02-15 12:27] LABS: BASO # 0.1 x10^3/uL (0.0-0.2); BASO % 1 % (0-3); EOS # 0.1 x10^3/uL (0.0-0.7); EOS % 2 % (0-3); HEMATOCRIT 44.7 % (36.0-47.0); HEMOGLOBIN 15.3 g/dL (12.0-15.5); LYMPH # 3.2 x10^3/uL (1.0-4.8); LYMPH % 44 % (24-48); MEAN CORPUSCULAR HEMOGLOBIN 32 pg (25-35); MEAN CORPUSCULAR HGB CONC 34 g/dL (31-37); MEAN CORPUSCULAR VOLUME 92 fL (79-100); MONO # 0.4 x10^3/uL (0.0-1.1); MONO % 6 % (0-9); NEUT # 3.5 x10^3/uL (1.8-7.7); NEUT % 48 % (31-73); PLATELET COUNT 252 x10^3/uL (140-400); RED BLOOD COUNT 4.86 x10^6/uL (3.50-5.40); RED CELL DISTRIBUTION WIDTH 13.4 % (11.5-14.5); WHITE BLOOD COUNT 7.4 x10^3/uL (4.0-11.0)
--- NOTE | 2021-02-15 12:37 | PHYS DOC ---
Past Medical History Past Medical History: Anxiety, Asthma, Depression, High Cholesterol, Kidney Stone, Other Additional Past Medical Histor: Back Pain, DDD, INSOMNIA, PTSD, MULTIPLE PERSONALITY DISORDER Past Surgical History: Hysterectomy, Tubal ligation, Other Additional Past Surgical Histo: CYSTOSCOPY W STENT PLACEMENT, I&D OF ABSCESS TO BACK, BX WRIST FX Smoking Status: Current Every Day Smoker Alcohol Use: None Drug Use: None General Adult EDM: Chief Complaint: FLANK PAIN HPI: HPI: Patient is a 40 year old female who presents with 3 days of left and right flank pain with nausea that is sharp and shooting and wrapping around to the abdomen. She states is worse on the left than it is the right. She states that she has a history of kidney stones and has had a cystoscopy with a stent placed. She states she usually goes to [facility]. Patient rates her pain a sharp shooting 10 out of 10. She has a history of multiple personality disorder, high cholesterol, ADD, insomnia, SVT, depression, PTSD, hysterectomy, kidney stone, asthma, smoker. She states she supposed to be on a beta-ivette for SVT but she is not taking it. Patient denies vomiting, diarrhea, constipation, fever, urinary symptoms, chest pain, shortness of breath, dizziness, numbness or tingling. Review of Systems: Review of Systems: Constitutional: Denies fever or chills. [] Eyes: Denies change in visual acuity. [] HENT: Denies nasal congestion or sore throat. [] Respiratory: Denies cough or shortness of breath. [] Cardiovascular: Denies chest pain or edema. [] GI: + Bilateral lower abdominal pain,+ nausea, denies vomiting, bloody stools or diarrhea. [] : Denies dysuria. [] Musculoskeletal: + Bilateral flank back pain or denies joint pain. [] Integument: Denies rash. [] Neurologic: Denies headache, focal weakness or sensory changes. [] Endocrine: Denies polyuria or polydipsia. [] Lymphatic: Denies swollen glands. [] Psychiatric: Denies depression or anxiety. [] Heart Score: C/O Chest Pain: No Risk Factors: Risk Factors: DM, Current or recent (<one month) smoker, HTN, HLP, family history of CAD, obesity. Risk Scores: Score 0 - 3: 2.5% MACE over next 6 weeks - Discharge Home Score 4 - 6: 20.3% MACE over next 6 weeks - Admit for Clinical Observation Score 7 - 10: 72.7% MACE over next 6 weeks - Early Invasive Strategies Current Medications: Current Medications Medications (Trade) Dose Ordered Sig/[facility] Start Time Stop Time Status Last Admin Dose Admin Fentanyl Citrate (Fentanyl 2ml Vial) 50 mcg 1X ONCE 02/15/21 12:15 02/15/21 12:16 DC Ketorolac Tromethamine (Toradol 30mg Vial) 30 mg 1X ONCE 02/15/21 12:15 02/15/21 12:16 DC Ondansetron HCl (Zofran) 4 mg 1X ONCE 02/15/21 12:15 02/15/21 12:16 DC Sodium Chloride 1,000 ml @ 1,000 mls/hr Q1H 02/15/21 12:15 02/15/21 13:14 Allergies: Allergies: Allergies Coded Allergies Type Severity Reaction Last Updated Verified oxycodone Allergy Intermediate Rash 02/15/21 Yes adhesive Allergy Unknown 02/15/21 Yes prednisone Adverse Reaction Intermediate 04/30/17 Yes Physical Exam: PE: Constitutional: Well developed, well nourished, no acute distress, non-toxic appearance. [] HENT: Normocephalic, atraumatic, bilateral external ears normal, oropharynx moist, no oral exudates, nose normal. [] Eyes: PERRLA, EOMI, conjunctiva normal, no discharge. [] Neck: Normal range of motion, no tenderness, supple, no stridor. [] Cardiovascular:Heart rate regular rhythm, no murmur [] Lungs & Thorax: Bilateral breath sounds clear to auscultation [] Abdomen: Bowel sounds normal, soft, left lower side tenderness, no masses, no pulsatile masses. [] Skin: Warm, dry, no erythema, no rash. [] Back: No tenderness, left CVA tenderness. [] Extremities: No tenderness, no cyanosis, no clubbing, ROM intact, no edema. [] Neurologic: Alert and oriented X 3, normal motor function, normal sensory function, no focal deficits noted. [] Psychologic: Affect normal, judgement normal, mood normal. [] Current Patient Data: Labs: Laboratory Tests Test 02/15/21 11:35 Urine Collection Type Unknown Urine Color Yellow Urine Clarity Clear Urine pH 8.0 (<5.0-8.0) Urine Specific [place] 1.020 (1.000-1.030) Urine Protein Negative mg/dL (NEG-TRACE) Urine Glucose (UA) Negative mg/dL (NEG) Urine Ketones (Stick) Negative mg/dL (NEG) Urine Blood Negative (NEG) Urine Nitrite Negative (NEG) Urine Bilirubin Negative (NEG) Urine Urobilinogen Dipstick 1.0 mg/dL (0.2 mg/dL) Urine Leukocyte Esterase Negative (NEG) Urine RBC 1-2 /HPF (0-2) Urine WBC 1-4 /HPF (0-4) Urine Squamous Epithelial Cells Many /LPF Urine Amorphous Sediment Present /HPF Urine Bacteria 0 /HPF (0-FEW) Urine Mucus Marked /LPF Vital Signs: Vital Signs Date Time Temp Pulse Resp B/P (MAP) Pulse Ox O2 Delivery O2 Flow Rate FiO2 02/15/21 11:59 98.7 84 16 167/82 (110) Room Air 98.7 EKG: EK and read by Dr. Antonio is sinus rhythm and no STEMI [] Radiology/Procedures: Radiology/Procedures: [] Impression: [facility] [address] [facility] [place] [address] IMAGING REPORT Signed PATIENT: NAI SEALS ACCOUNT: [id number] : 1980 LOCATION: ER AGE: 40 SEX: F EXAM STATUS: REG ER ORD. PHYSICIAN: ELIEZER BILLS APRN REASON: BILATERAL FLANK PAIN PROCEDURE: CT ABDOMEN PELVIS WO CONTRAST INDICATION: Reason: BILATERAL FLANK PAIN / Spl. Instructions: / History: . COMPARISON: July 2018 TECHNIQUE: Axial CT images obtained through the abdomen and pelvis without contrast. One or more of the following individualized dose reduction techniques were utilized for this examination: 1. Automated exposure control; 2. Adjustment of the mA and/or kV according to patient size; 3. Use of iterative reconstruction technique. FINDINGS: 2 mm nodule right lung base again seen. May be from a calcified granuloma. Abdominal aorta is not aneurysmal. Fat-containing umbilical hernia. No intrahepatic bile duct dilation. Postcholecystectomy changes. No peripancreatic fluid collection. Spleen unremarkable. Calcifications at the left renal cortex with either a cleft or cortical scarring again seen. No hydronephrosis. Decompressed urinary bladder. No periappendiceal inflammatory changes. No dilated loops of bowel to suggest obstruction. 10 mm sclerotic focus at T10 vertebral body again seen and could be related to degenerative changes or bone island. IMPRESSION: * Nonobstructive left stones or cortical calcifications without radiopaque obstructive ureter stone. No hydronephrosis. * No evidence of bowel obstruction or appendicitis. Electronically signed by: Jennifer Jay MD (02/15/2021 1:33 PM) [id number] DICTATED and SIGNED BY: JENNIFER JAY MD DATE: 02/15/21 [id number] Course & Med Decision Making: Course & Med Decision Making Pertinent Labs and Imaging studies reviewed. (See chart for details) See HPI. Alert and oriented x4. Ambulatory with steady gait. Speaks in full clear sentences. Left CVA tenderness. No right CVA tenderness. Left side abdominal tenderness but abdomen otherwise soft and nontender. Afebrile. Skin pink warm and dry. [] Dragon Disclaimer: Dragon Disclaimer: This electronic medical record was generated, in whole or in part, using a voice recognition dictation system. Departure Departure Impression: Primary Impression: Bilateral flank pain Disposition: HOME / SELF CARE / HOMELESS Condition: STABLE Referrals: VINCENT WIN (PCP) Patient Instructions: Flank Pain Additional Instructions: Follow-up with your primary care provider. Drink plenty of fluids. Take medication as prescribed. Scripts Ondansetron (ONDANSETRON ODT) 4 Mg Tab.rapdis 1 TAB PO PRN Q6-8HRS, #16 TAB Prov: ELIEZER BILLS [employer]PECTOR 02/15/21 Cyclobenzaprine Hcl (CYCLOBENZAPRINE HCL) 10 Mg Tablet 1 TAB PO TID for 4 Days, #12 TAB Prov: ELIEZER BILLS APRN 02/15/21 Ibuprofen (IBUPROFEN) 600 Mg Tablet 600 MG PO PRN Q6HRS PRN for INFLAMMATION, #20 TAB Prov: ELIEZER BILLS [employer] INSPECTOR 02/15/21 ELIEZER BILLS APRN Feb 15, 2021 12:37
[2021-02-15 12:41] LABS: CALCIUM 9.2 mg/dL (8.5-10.1); CREATININE 0.8 mg/dL (0.6-1.0); POTASSIUM 4.3 mmol/L (3.5-5.1)
[2021-02-15 12:56] LABS: ALBUMIN 3.9 g/dL (3.4-5.0); ALBUMIN/GLOBULIN RATIO 1.5 (1.0-1.7); TOTAL BILIRUBIN 0.4 mg/dL (0.2-1.0); TOTAL PROTEIN 6.5 g/dL (6.4-8.2)
[2021-02-15 13:34] VITALS: BP 125/64
--- NOTE | 2021-02-15 13:35 | RAD ---
INDICATION: Reason: BILATERAL FLANK PAIN / Spl. Instructions: / History: . COMPARISON: July 2018 TECHNIQUE: Axial CT images obtained through the abdomen and pelvis without contrast. One or more of the following individualized dose reduction techniques were utilized for this examinat ion: 1. Automated exposure control; 2. Adjustment of the mA and/or kV according to patient size; 3 . Use of iterative reconstruction technique. FINDINGS: 2 mm nodule right lung base again seen. May be from a calcified granuloma. Abdominal aorta is not aneurysmal. Fat-containing umbilical hernia. No intrahepatic bile duct dilation. Postcholecystectomy changes. No peripancreatic fluid collection. Spleen unremarkable. Calcifications at the left renal cortex with either a cleft or cortical scarring again seen. No hydro nephrosis. Decompressed urinary bladder. No periappendiceal inflammatory changes. No dilated loops of bowel to suggest obstruction. 10 mm sclerotic focus at T10 vertebral body again seen and could be related to degenerative changes o r bone island. IMPRESSION: * Nonobstructive left stones or cortical calcifications without radiopaque obstructive ureter stone. No hydronephrosis. * No evidence of bowel obstruction or appendicitis. Electronically signed by: Julian Nickerson MD (02/15/2021 1:33 PM) [id number]
[2021-02-15] MEDS ORDERED: IBUP-1007 PO (13:42)
[2021-02-15] MEDS ORDERED: CYCL10TA2 PO (13:42)
[2021-02-15] MEDS ORDERED: ONDA4TAB12 PO (13:42)
--- NOTE | 2021-02-15 14:04 | EKG ---
[facility] [address] [place] [address] Test Date: 2021-02-15 Test Time: 12:12:34 Pat Name: NAI SEALS Department: Room: Gender: F Clamper: : 1980 Requested By: ELIEZER BILLS Order Number: [id number] Reading MD: Measurements Intervals [place] Rate: 70 P: -24 NC: 134 QRS: 43 QRSD: 78 T: 29 QT: 356 QTc: 387 Interpretive Statements SINUS RHYTHM OTHERWISE NORMAL ECG RI6.02 No previous ECG available for comparison
== END 2021-02-15 14:02 | disposition home or self-care (01) ==
LOC: ER 11:35
DX: R10.31 Right lower quadrant pain (principal); R10.32 Left lower quadrant pain; R11.0 Nausea; J45.909 Unspecified asthma, uncomplicated; E78.00 Pure hypercholesterolemia, unspecified; F17.200 Nicotine dependence, unspecified, uncomplicated; Z95.5 Presence of coronary angioplasty implant and graft; Z90.710 Acquired absence of both cervix and uterus; Z98.51 Tubal ligation status; Z87.442 Personal history of urinary calculi
CPT/HCPCS: 36415; 74176; 80053; 81001; 83690; 84484; 85025; 93005; 96361; 96374; 96375; 99285; J1885; J2405; J3010; J7030

== ENCOUNTER 2021-06-15 00:53 | Emergency (ER) | payer OTHER ==
[~2021-06-15] VITALS: Ht 157.5 cm; Wt 79.0 kg
[~2021-06-15 00:53] MED LIST changes: +CYCL10TA19 PO; -CYCL10TA2 PO; +IBUP-1007 PO; +ONDA4TAB12 PO
--- NOTE | 2021-06-15 01:02 | PHYS DOC ---
Past Medical History Past Medical History: Anxiety, Asthma, Depression, High Cholesterol, Kidney Stone, Other Additional Past Medical Histor: Back Pain, DDD, INSOMNIA, PTSD, MULTIPLE PERSONALITY DISORDER Past Surgical History: Hysterectomy, Tubal ligation, Other Additional Past Surgical Histo: CYSTOSCOPY W STENT PLACEMENT, I&D OF ABSCESS TO BACK, BX WRIST FX Smoking Status: Current Every Day Smoker Alcohol Use: None Drug Use: None General Adult EDM: Chief Complaint: CHEST PAIN HPI: HPI: 41-year-old female who is a current smoker, hypertension history presents the emergency department complaining of chest pain the middle of her chest for the last 3 days that is intermittent, worsens with movements, feels tight, radiation under the left breast. She states her pain got worse tonight while she was laying down and moving her arm. She admits to some urinary difficulties lately. The patient denies abdominal pain, cough, fever, chills sweating, shortness of air, nausea, vomiting, palpitations or dizziness. Review of Systems: Review of Systems: Constitutional: Negative except what was mentioned in HPI. Eyes: Negative except what was mentioned in HPI. HENT: Negative except what was mentioned in HPI. Respiratory: Negative except what was mentioned in HPI. Cardiovascular: Negative except what was mentioned in HPI. GI: Negative except what was mentioned in HPI. : Negative except what was mentioned in HPI. Musculoskeletal: Negative except what was mentioned in HPI. Integument: Negative except what was mentioned in HPI. Neurologic: Negative except what was mentioned in HPI. Heart Score: C/O Chest Pain: Yes HEART Score for Chest Pain: HEART Score for Chest Pain Response (Comments) Value History Slighlty/Non-Suspicious 0 ECG Normal 0 Age < 45 0 Risk Factors 1 or 2 Risk Factors 1 Troponin < Normal Limit 0 Total 1 Family History: Family History: Noncontributory Current Medications: Current Medications Medications (Trade) Dose Ordered Sig/Mariel Start Time Stop Time Status Last Admin Dose Admin Acetaminophen (Tylenol) 1,000 mg 1X ONCE 06/15/21 01:00 06/15/21 01:01 UNV Hydroxyzine HCl (Atarax) 25 mg 1X STAT 06/15/21 00:57 06/15/21 00:58 UNV Allergies: Allergies: Allergies Coded Allergies Type Severity Reaction Last Updated Verified oxycodone Allergy Intermediate Rash 02/15/21 Yes adhesive Allergy Unknown 02/15/21 Yes prednisone Adverse Reaction Intermediate 04/30/17 Yes Physical Exam: PE: Constitutional: No acute distress, non-toxic appearance. HENT: Atraumatic, bilateral external ears normal, nose normal. Eyes: Conjunctiva normal, no discharge. Neck: Normal range of motion, supple, no stridor. Cardiovascular: Heart rate regular rhythm. 2+ radial pulses and equal Lungs & Thorax: No respiratory distress, symmetrical expansion. Bilateral breath sounds clear to auscultation Chest wall: No reproducible chest wall tenderness to palpation, no lesions. Abdomen: Soft, no tenderness Skin: Warm, dry. Extremities: No tenderness, no cyanosis, ROM intact, no edema. Neurologic: Alert and oriented X 3, normal motor function, normal sensory function, no focal deficits noted. GCS 15. Psychologic: Affect normal, judgment normal, mood normal. Current Patient Data: Labs: Laboratory Tests Test 06/15/21 01:11 White Blood Count 10.7 x10^3/uL (4.0-11.0) Red Blood Count 4.68 x10^6/uL (3.50-5.40) Hemoglobin 14.7 g/dL (12.0-15.5) Hematocrit 43.7 % (36.0-47.0) Mean Corpuscular Volume 93 fL (79-100) Mean Corpuscular Hemoglobin 32 pg (25-35) Mean Corpuscular Hemoglobin Concent 34 g/dL (31-37) Red Cell Distribution Width 13.8 % (11.5-14.5) Platelet Count 259 x10^3/uL (140-400) Neutrophils (%) (Auto) 44 % (31-73) Lymphocytes (%) (Auto) 47 % (24-48) Monocytes (%) (Auto) 7 % (0-9) Eosinophils (%) (Auto) 2 % (0-3) Basophils (%) (Auto) 1 % (0-3) Neutrophils # (Auto) 4.7 x10^3/uL (1.8-7.7) Lymphocytes # (Auto) 5.0 x10^3/uL (1.0-4.8) Monocytes # (Auto) 0.7 x10^3/uL (0.0-1.1) Eosinophils # (Auto) 0.2 x10^3/uL (0.0-0.7) Basophils # (Auto) 0.1 x10^3/uL (0.0-0.2) Sodium Level 140 mmol/L (136-145) Potassium Level 3.5 mmol/L (3.5-5.1) Chloride Level 105 mmol/L (98-107) Carbon Dioxide Level 28 mmol/L (21-32) Anion Gap 7 (6-14) Blood Urea Nitrogen 10 mg/dL (7-20) Creatinine 0.9 mg/dL (0.6-1.0) Estimated GFR (Cockcroft-Gault) 68.7 Glucose Level 111 mg/dL (70-99) Calcium Level 8.4 mg/dL (8.5-10.1) Troponin I Quantitative < 0.017 ng/mL (0.000-0.055) KC-Aiu-D-Type Natriuretic Peptide 26 pg/mL (0-124) Vital Signs: Vital Signs Date Time Temp Pulse Resp B/P (MAP) Pulse Ox O2 Delivery O2 Flow Rate FiO2 06/15/21 01:40 75 18 128/81 (97) 99 06/15/21 01:17 98.2 78 15 120/82 (95) Room Air 98.2 EKG: EKG: Time read: 0107 Normal sinus rhythm rate of 70, no ST-T wave changes, no ectopic beats, normal axis, normal TN, QRS, and QTc intervals. Impression: Normal EKG. interpreted by Darrel stout D.O. Radiology/Procedures: Radiology/Procedures: No airspace disease, infiltrates or consolidations, lung vargas clear. No pneumothorax or pleural effusion. Cardiac silhouette within normal limits. No widening of mediastinum. No obvious free air seen. Impression: normal CXR. Interpreted by Darrel stout D.O. Course & Med Decision Making: Course & Med Decision Making Patient abruptly left the emergency department prior to her labs resulting. She did not allow discharge counseling nor AMA counseling prior to leaving the department. She likely had musculoskeletal chest pain based on her history. Her labs did return and were unremarkable. Departure Departure Impression: Primary Impression: Chest pain Disposition: LEFT AGAINST MEDICAL ADVICE Condition: STABLE Referrals: VINCENT WIN (PCP) DARREL FERNANDEZ DO Jun 15, 2021 01:02
[2021-06-15 01:19] LABS: BASO # 0.1 x10^3/uL (0.0-0.2); BASO % 1 % (0-3); EOS # 0.2 x10^3/uL (0.0-0.7); EOS % 2 % (0-3); HEMATOCRIT 43.7 % (36.0-47.0); HEMOGLOBIN 14.7 g/dL (12.0-15.5); LYMPH % 47 % (24-48); MEAN CORPUSCULAR HEMOGLOBIN 32 pg (25-35); MEAN CORPUSCULAR HGB CONC 34 g/dL (31-37); MEAN CORPUSCULAR VOLUME 93 fL (79-100); MONO # 0.7 x10^3/uL (0.0-1.1); MONO % 7 % (0-9); NEUT # 4.7 x10^3/uL (1.8-7.7); NEUT % 44 % (31-73); PLATELET COUNT 259 x10^3/uL (140-400); RED BLOOD COUNT 4.68 x10^6/uL (3.50-5.40); RED CELL DISTRIBUTION WIDTH 13.8 % (11.5-14.5); WHITE BLOOD COUNT 10.7 x10^3/uL (4.0-11.0)
[2021-06-15] MEDS ORDERED: hydrOXYzine 25 MG TABLET PO ONE (01:30)
[2021-06-15] MEDS ORDERED: ACETAMINOPHEN 500 MG TABLET PO ONE (01:30)
[2021-06-15 01:31] LABS: CALCIUM 8.4 mg/dL (8.5-10.1); CREATININE 0.9 mg/dL (0.6-1.0); GFR 68.7; POTASSIUM 3.5 mmol/L (3.5-5.1)
[2021-06-15 02:11] VITALS: BP 114/77
--- NOTE | 2021-06-15 04:48 | RAD ---
EXAM: CHEST 1 VIEW History: Chest pain COMPARISON: 07/31/2019 TECHNIQUE: Single portable radiograph of the chest FINDINGS: The cardiac silhouette is unremarkable. The lungs are clear bilaterally. The costophrenic sulci are clear and well demarcated. IMPRESSION: No radiographic evidence of an acute cardiopulmonary process. Electronically signed by: Ayo Trammell MD (06/15/2021 4:46 AM) [id number]
== END 2021-06-15 02:11 | disposition left against medical advice (07) ==
LOC: ER 00:53
DX: R07.89 Other chest pain (principal); J45.909 Unspecified asthma, uncomplicated; E78.00 Pure hypercholesterolemia, unspecified; F17.200 Nicotine dependence, unspecified, uncomplicated; F43.10 Post-traumatic stress disorder, unspecified; Z88.5 Allergy status to narcotic agent; Z88.8 Allergy status to other drugs, medicaments and biological substances
CPT/HCPCS: 36415; 71045; 80048; 83880; 84484; 85025; 99284